=== PATIENT | male | born 1945 | race Caucasian/White ===

== ENCOUNTER 2023-10-27 09:26 | Outpatient (AMB) | payer MEDICARE, OTHER, SELFPAY ==
--- NOTE | 2023-10-27 09:53 | HO.NEPHOV_ITS ---
Vital Signs 10/27/23 09:54 Weight 185 lb 8 oz BP 138/70 Blood Pressure Location Rt brachial Position Sitting Pulse 50 Pulse Source Pulse Oximeter Pulse Oximetry (%) 98 Oxygen Delivery Method Room Air Intake Visit Reasons: Follow up/ CON Unemployment Benefits Claims Taker Required: No Accompanied by: Spouse Allergies No Known Allergies Allergy (Verified 10/27/23 09:56) HPI Comments Details: I had the privilege of seeing Landon in follow-up of his chronic kidney disease and hypertension. He continues to have some leg pain and is following up with vascular surgery. He sees his costumer assistant regularly. His blood pressure has been at goal. He avoids nonsteroidal anti-inflammatories. He has been having memory issues and is on Aricept. He denies nausea, vomiting, diarrhea, shortness of breath, chest pain, dysuria, hematuria or orthostatic symptoms. He feels well. [facility] Medical History (Updated 10/27/23 @ 20:57 by Armaan Kenney MD) Presence of Watchman left atrial appendage closure device Hypertension CKD (chronic kidney disease) stage 3, GFR 30-59 ml/min Surgical History (Updated 10/27/23 @ 09:58 by Charlotte Grewal MA) History of knee replacement Family History (Updated 10/27/23 @ 09:59 by Charlotte Grewal MA) Father Hypertension Mother Hypertension Heart attack Father Stroke Hypertension Sister Hypertension Stroke Social History (Updated 10/27/23 @ 09:58 by Charlotte Grewal MA) Alcohol intake: current Comment: Soacial Patient Tobacco Use Status: Former Tobacco user Review of Systems Const All systems reviewed & are unremarkable except as noted in HPI and below Physical Exam Vital Signs: Last Vital Signs Pulse 50 10/27/23 09:54 BP 138/70 10/27/23 09:54 Pulse Ox 98 10/27/23 09:54 Oxygen Delivery Method Room Air 10/27/23 09:54 Const General: comfortable and no acute distress Orientation/consciousness: patient oriented x3 HEENT Head: Yes normocephalic Mouth: Normal oral and palatal mucosa present Eyes EOM: EOMs intact bilaterally Neck Neck: Yes supple Resp Auscultation: clear to auscultation bilaterally Cardio Jugular venous distension: no JVD Rate: regular rate GI Palpation (GI): Soft to palpation Auscultation: normal bowel sounds General: Yes no CVA tenderness Back/Spine/Pelvis Back: no CVA tenderness Skin General skin exam: no rashes or lesions noted Neuro General: patient oriented x3 and moves all extremities Extrem General: Yes no pedal edema Results Reviewed Nephrology Results: No Data to Display Assessment & Plan Assessment & Plan (1) CKD (chronic kidney disease) stage 3, GFR 30-59 ml/min: Code(s): N18.30 - Chronic kidney disease, stage 3 unspecified Category: Medical Qualifiers: Chronic kidney disease stage 3 subtype: stage 3a (GFR 45-59) Qualified Code(s): N18.31 - Chronic kidney disease, stage 3a (2) Hypertension: Code(s): I10 - Essential (primary) hypertension Category: Medical Qualifiers: Hypertension type: primary hypertension Qualified Code(s): I10 - Essential (primary) hypertension Plan Landon has CKD from vascular disease. His blood pressure is currently at goal. His renal function remain close to baseline. He avoids nonsteroidal anti- inflammatories and maintain good hydration. I shall consider introducing low- dose of JANE inhibitor in the future if possible. His blood pressure is at goal. He should be on a low-sodium diet. He can continue current dose of allopurinol. I did not make any medication changes today. Follow-up lab work ordered. Time spent retrieving all data, patient encounter and documentation 41 minutes. Answered all questions. Orders: Orders Blood Urea Nitrogen Today N18.30 - Chronic kidney disease, stage 3 unspecified Electrolytes Today N18.30 - Chronic kidney disease, stage 3 unspecified Calcium Today N18.30 - Chronic kidney disease, stage 3 unspecified Complete Blood Count Auto Diff Today N18.30 - Chronic kidney disease, stage 3 unspecified Creatinine Today N18.30 - Chronic kidney disease, stage 3 unspecified Coding Level of Care Code Est Pt Level 5 (59304) Diagnoses Stage 3a chronic kidney disease N18.31 Chronic kidney disease stage 3 subtype: stage 3a (GFR 45-59) Primary hypertension I10 Hypertension type: primary hypertension
[2023-10-27 09:54] VITALS: BP 138/70; PULSE 50; O2SAT 98
== END 2023-10-27 10:37 | disposition home or self-care (01) ==
PROVIDERS: PCP Hospitalist; Visit Provider Internal Medicine Nephrology
DX: I12.9 Hypertensive chronic kidney disease with stage 1 through stage 4 chronic kidney disease, or unspecified chronic kidney disease (principal); N18.31 Chronic kidney disease, stage 3a
CPT/HCPCS: 99215

== ENCOUNTER → 2023-10-27 09:26 | Outpatient (BNVA) | payer MEDICARE, OTHER, SELFPAY | PROVIDERS: PCP Hospitalist; Visit Provider Internal Medicine Nephrology | DX: I12.9 Hypertensive chronic kidney disease with stage 1 through stage 4 chronic kidney disease, or unspecified chronic kidney disease (principal); N18.31 Chronic kidney disease, stage 3a | CPT/HCPCS: 99212 ==

== ENCOUNTER 2024-04-26 10:08 | Outpatient (AMB) | payer MEDICARE, OTHER, SELFPAY ==
--- NOTE | 2024-04-26 10:11 | HO.NEPHOV_ITS ---
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 He continues to have cold feet . He has seen vascular surgery before. He sees his book jogger regularly and had a watch man device . He is going to have steroid injection for spinal stenosis ( he has seen Dr Christie ). His blood pressure has been at goal. He avoids nonsteroidal anti-inflammatories. He has been having memory issues and is on Aricept. He denies nausea, vomiting, diarrhea, shortness of breath, chest pain, dysuria, hematuria or orthostatic symptoms. He feels well. [facility] Medical History (Updated 10/27/23 @ 20:57 by Armaan Kenney MD) Presence of Watchman left atrial appendage closure device Hypertension CKD (chronic kidney disease) stage 3, GFR 30-59 ml/min Surgical History History of knee replacement Family History Father Hypertension Mother Hypertension Heart attack Father Stroke Hypertension Sister Hypertension Stroke Social History Alcohol intake: current Comment: Soacial Patient Tobacco Use Status: Former Tobacco user Review of Systems Const All systems reviewed & are unremarkable except as noted in HPI and below Physical Exam Vital Signs: Last Vital Signs Pulse 60 04/26/24 10:17 BP 120/60 04/26/24 10:17 Pulse Ox 96 04/26/24 10:17 Oxygen Delivery Method Room Air 04/26/24 10:17 BMI result Body Mass Index 29.6 Const General: comfortable and no acute distress Orientation/consciousness: patient oriented x3 HEENT Head: Yes normocephalic Mouth: Normal oral and palatal mucosa present Eyes EOM: EOMs intact bilaterally Neck Neck: Yes supple Resp Auscultation: clear to auscultation bilaterally Cardio Jugular venous distension: no JVD Rate: regular rate GI Palpation (GI): Soft to palpation Auscultation: normal bowel sounds General: Yes no CVA tenderness Back/Spine/Pelvis Back: no CVA tenderness Skin General skin exam: no rashes or lesions noted Neuro General: patient oriented x3 and moves all extremities Extrem General: Yes no pedal edema Results Reviewed Nephrology Results: No Data to Display Assessment & Plan Assessment & Plan (1) CKD (chronic kidney disease) stage 3, GFR 30-59 ml/min: Code(s): N18.30 - Chronic kidney disease, stage 3 unspecified Category: Medical Qualifiers: Chronic kidney disease stage 3 subtype: stage 3a (GFR 45-59) Qualified Code(s): N18.31 - Chronic kidney disease, stage 3a (2) Hypertension: Code(s): I10 - Essential (primary) hypertension Category: Medical Qualifiers: Hypertension type: primary hypertension Qualified Code(s): I10 - Essential (primary) hypertension Plan Landon has CKD from vascular disease. His blood pressure is currently at goal. His renal function remain close to baseline. He avoids nonsteroidal anti- inflammatories and maintain good hydration. He should be on a low-sodium diet. He can continue current dose of his medications. He needs MARKO and may have to see vascular surgeon again. I did not make any medication changes today. Follow-up lab work ordered. Answered all questions. Orders: Orders Creatinine 6 Months I10 - Essential (primary) hypertension, N18.31 - Chronic kidney disease, stage 3a Electrolytes 6 Months I10 - Essential (primary) hypertension, N18.31 - Chronic kidney disease, stage 3a Protein Creatinine Ratio, Ur 6 Months I10 - Essential (primary) hypertension, N18.31 - Chronic kidney disease, stage 3a Blood Urea Nitrogen 6 Months I10 - Essential (primary) hypertension, N18.31 - Chronic kidney disease, stage 3a Coding Level of Care Code Est Pt Level 4 (59763) Diagnoses Stage 3a chronic kidney disease N18.31 Chronic kidney disease stage 3 subtype: stage 3a (GFR 45-59) Primary hypertension I10 Hypertension type: primary hypertension
[2024-04-26 10:17] VITALS: BP 120/60; PULSE 60; O2SAT 96; BMI 29.6
--- OUTSIDE RECORDS SUMMARY | 2024-04-26 11:52 | XMS_ITS | Clinical Summary ---
Author Organization [employer] [facility] Address [address] [place] [address] Care Team Providers Care Delivery Nurse Name Role Phone El Ramesh MD Primary Care Provider Surgical History Surgery Date Site/Laterality Comments JOINT REPLACEMENT PROCEDURE:JOINT REPLACEMENT HERNIA REPAIR PROCEDURE:HERNIA REPAIR HEMORRHOID SURGERY PROCEDURE:HEMORRHOID SURGERY Medical History Medical History Date Comments Hypertension DX:Hypertension A-fib (CMS/HCC) DX:A-fib (HCC) Gout DX:Gout Arthritis DX:Arthritis Social History Tobacco Use Types Packs/Day Years Used Date Smoking Tobacco: Unknown Sex and Gender Information Value Date Recorded Sex Assigned at Not on file Legal Sex Male 7:10 AM EST Gender Identity Not on file Sexual Orientation Not on file Obstetrics History Plan of Treatment Health Maintenance Due Date Last Done Comments DTaP,Tdap,and Td Vaccines (1 - Tdap) 12/03/1962 Zoster Vaccines (1 of 2) 12/03/1993 RSV Immunization Patients 60+ Years Old (1 - 1-dose 75+ series) 12/03/2018 Cholesterol Screening (Lipid Panel) 01/24/2022 Depression Screening 01/24/2022 Falls Risk Assessment 01/24/2022 Social Influencers of Health Screening 01/24/2022 Medicare Annual Wellness Visit 10/22/2023 10/21/2022 COVID-19 Vaccine ( - season) 2023 Influenza Vaccine (#1) 2023 3, 11/12/2021, 11/22/2020, Additional history exists Pneumococcal Vaccine: 50+ Years (2 of 2 - PCV) 12/08/2023 12/07/2022 HIB Vaccines Aged Out No longer eligi ble based on patient's age to complete this topic HPV Vaccines Aged Out No longer eligi ble based on patient's age to complete this topic Hepatitis A Vaccines Aged Out No long er eligible based on patient's age to complete this topic Hepatitis B Vaccines Aged Out No long er eligible based on patient's age to complete this topic IPV Vaccines Aged Out No longer eligi ble based on patient's age to complete this topic MMR Vaccines Aged Out No longer eligi ble based on patient's age to complete this topic Meningococcal ACWY Vaccine Aged Out N o longer eligible based on patient's age to complete this topic Meningococcal B Vacine Aged Out No lo nger eligible based on patient's age to complete this topic RSV Immunization Patients Under 20 months Aged Out No longer eligible based on patient's age to complete this topic Varicella Vaccines Aged Out No longer eligible based on patient's age to complete this topic Advance Directives Documents on File Type Date Recorded Patient Cullet Washer Expl anation Health Care Decision (hx) 10/26/2019 AD DIXON DIRECTIVE Health Care Decision (hx) 10/26/2019 AD DIXON DIRECTIVE Health Care Decision (hx) 10/26/2019 AD DIXON DIRECTIVE Health Care Decision (hx) 10/26/2019 AD DIXON DIRECTIVE Health Care Decision (hx) 10/26/2019 AD DIXON DIRECTIVE Health Care Decision (hx) 10/26/2019 AD DIXON DIRECTIVE Health Care Decision (hx) 10/26/2019 AD DIXON DIRECTIVE Health Care Decision (hx) 10/26/2019 AD DIXON DIRECTIVE Health Care Decision (hx) 10/09/2019 AD DIXON DIRECTIVE Health Care Decision (hx) 10/09/2019 AD DIXON DIRECTIVE Health Care Decision (hx) 10/09/2019 AD DIXON DIRECTIVE Health Care Decision (hx) 10/09/2019 AD DIXON DIRECTIVE Health Care Decision (hx) 10/09/2019 AD DIXNO DIRECTIVE Health Care Decision (hx) 10/09/2019 AD DIXON DIRECTIVE Health Care Decision (hx) 10/09/2019 AD DIXON DIRECTIVE Health Care Decision (hx) 10/09/2019 AD DIXON DIRECTIVE Health Care Decision (hx) 10/09/2019 AD DIXON DIRECTIVE Care Teams Delivery Nurse Relationship Specialty Start Date End Date El Ramesh MD [address] [place] [address] [facility] - General 06/01/13
--- OUTSIDE RECORDS SUMMARY | 2024-04-26 11:52 | XMS_ITS | Clinical Summary ---
Author Organization [facility] Address [address] [facility] [address] [place] [address] Phone Care Team Providers Care Food Counselor Name Role Phone El Ramesh MD Primary Care Provider [phone] Allergies No known active allergies Medications allopurinol (ZYLOPRIM) 300 MG tablet Take 1 tablet by mouth 1 (one) time each day Active apixaban (ELIQUIS) 5 MG tablet Take 1 tablet by mouth 2 (two) times a day Active multivitamine, geriatric, (CENTRUM SILVER) tablet Take 1 tablet by mouth 1 (one) time each day Active omeprazole (PriLOSEC) [address] capsule Take 1 capsule by mouth 1 (one) time each day Active ferrous sulfate 325 (65 Fe) MG tablet Take 325 mg by mouth 1 (one) time each day with breakfast Active amLODIPine (NORVASC) 5 MG tablet Take 5 mg by mouth 1 (one) time each day Active omega-3 (FISH OIL) 1000 MG capsule Take by mouth 1 (one) time each day Active cyanocobalamin (VITAMIN B-12) 100 MCG tablet Take 100 mcg by mouth 1 (one) time each day Active Probiotic Product (Align) capsule Take 1 capsule by mouth 1 (one) time each day Active Magnesium 250 MG tablet Take 1 tablet by mouth 1 (one) time in dialysis Active donepezil (Aricept) 10 MG tablet Take 10 mg by mouth every night Active Active Problems Problem Noted Date Diagnosed Date Stage 3a chronic kidney disease 10/26/2022 Heart failure with normal ejection fraction 07/24 Hypertension 01/19/2021 Benign hypertensive renal disease 08/01/2020 Chronic kidney disease 08/01/2020 Essential hypertension 08/01/2020 Proteinuria 08/01/2020 Resolved Problems Problem Noted Date Diagnosed Date Resolved Date Anxiety disorder 08/01/2020 08/01/2020 Atrial fibrillation 08/01/2020 08/02/19 21 Dizziness and giddiness 08/01/202007/22 Gastro-esophageal reflux dis ease without esophagitis 08/01/2020 08/01/2020 Gout 08/01/2020 08/01/2020 Impaired fasting glucose 08/01/202012/2020 Low back strain 08/01/2020 08/01/2020 Obese class II 08/01/2020 08/01/2020 Polyneuropathy 08/01/2020 08/01/2020 Sleep apnea 08/01/2020 08/01/2020 Impingement syndrome of right shoulder region 02/02/20 19 08/01/2020 Abnormal gait 08/10/2018 08/01/2020 Pain of knee region 10/26/2016 08/02/19 21 Pain in left knee 10/26/2016 08/01/2020 Pain in right hip joint 10/26/201607/22 Encounters Date Type Department Care Team Description 04/20/2024 Orders Only [facility] [address] [place] [phone] Armaan Kenney MD from Last 3 Months Immunizations Name Administration Dates Next Due Hep A, Unspecified 06/29/2006,10/27/2005 Influenza Split High Dose Preservative Free IM 0 10/26/2019 Family History Medical History Relation Comments Cancer Father Gout Father Hypertension Father Stroke Father Cancer Mother Dementia Mother Heart disease Mother Hypertension Mother Kidney disease Sibling Relation Status Comments Father Mother Sibling Social History Tobacco Use Types Packs/Day Years Used Date Smoking Tobacco: Former Cigarettes Q uit: 02/21/1993 Smokeless Tobacco: Never Comments:Smoking History Inf o:Every day Alcohol Use Standard Drinks/Week Comments Yes 0 (1 standard drink = 0.6 oz pure alcohol) Alcoholic Drinks/day: 1-2 drinks per day Sex and Gender Information Value Date Recorded Sex Assigned at Not on file Legal Sex Male 5:02 PM EST Gender Identity Not on file Sexual Orientation Not on file Last Filed Vital Signs Vital Sign Reading Time Taken Comments Blood Pressure 140/60 10/26/2022 2:12 PM EDT Pulse 60 10/26/2022 2:12 PM EDT Temperature - - Respiratory Rate - - Oxygen Saturation 97% 01/19/2021 2:21 PM EST Inhaled Oxygen Concentration - - Weight 78 kg (172 lb) 10/26/2022 2:12 PM EDT Height 170.2 cm (5' 7 ) 08/07/2019 12:00 PM EDT Body Mass Index 26.94 08/07/2019 12:00 PM EDT Plan of Treatment Health Maintenance Due Date Last Done Comments Pneumococcal Vaccine: 65+ Ye ars (1 of 2 - PCV) 12/03/1951 Influenza Vaccine (#1) 2023 10/26/2019 Hepatitis B Vaccine Aged Out No longe r eligible based on patient's age to complete this topic Procedures Procedure Name Priority Date/Time Associated Diagnosis Comments CALCIUM Routine 04/20/2024 8:53 AM EST CREATININE, SERUM Routine 04/20/2024 8:5 3 AM EST BUN Routine 04/20/2024 8:53 AM EST ELECTROLYTE PANEL Routine 04/20/2024 8:5 3 AM EST CBC AND DIFFERENTIAL Routine 04/20/2024 8:53 AM EST from Last 3 Months Results * (ABNORMAL) CBC and Differential (04/20/2024 8:53 AM EST) WBC 7.5 3.4 - 10.8 x10E3/uL [facility] RBC 3.94(L) 4.14 - 5.80 x10E6/uL [facility] Hemoglobin 10.0(L) 13.0 - 17.7 g/dL [facility] Hematocrit 33.5(L) 37.5 - 51.0 % [facility] MCV 85 79 - 97 fL [facility] MCH 25.4(L) 26.6 - 33.0 pg [facility] MCHC 29.9(L) 31.5 - 35.7 g/dL [facility] RDW 15.8(H) 11.6 - 15.4 % [facility] Platelets 309 150 - 450 x10E3/uL [facility] Neutrophils Relative 68 Not Estab. % [facility] Lymphocytes Relative 22 Not Estab. % [facility] Monocytes 7 Not Estab. % [facility] Eosinophils Relative 2 Not Estab. % [facility] Basophils Relative 1 Not Estab. % [facility] Neutrophils Absolute 5.1 1.4 - 7.0 x10E3/uL [facility] Lymphocytes Absolute 1.7 0.7 - 3.1 x10E3/uL [facility] Monocytes Absolute 0.5 0.1 - 0.9 x10E3/uL [facility] Eosinophils Absolute 0.1 0.0 - 0.4 x10E3/uL [facility] Basophils Absolute 0.0 0.0 - 0.2 x10E3/uL [facility] Immature Granulocytes 0 Not Estab. % [facility] Immature Grans (Absolute) 0.0 0.0 - 0.1 x10E3/uL [facility] 04/20/2024 8:53 AM EST 04/20/2024 us Armaan Kenney MD LAB BLOOD ORDERABLES Final Resul t [facility] [address] [place] [address] * BUN (04/20/2024 8:53 AM EST) BUN 17 8 - 27 mg/dL [facility] 04/20/2024 8:53 AM EST 04/20/2024 Armaan Kenney MD LAB BLOOD ORDERABLES Final Resul t Performing Organization Address City/[facility]/ZIP Co de Phone Number [facility] [address] [place] [address] * (ABNORMAL) Creatinine, serum (04/20/2024 8:53 AM EST) Creatinine 1.63(H) 0.76 - 1.27 mg/dL [facility] eGFR CKD-EPI CR 2020 42(L) >59 mL/min/1.7 3 [facility] 04/20/2024 8:53 AM EST 04/20/2024 Armaan Kenney MD LAB BLOOD ORDERABLES Final Resul t Performing Organization Address [facility] Co de Phone Number [facility] [address] [place] [address] * Calcium (04/20/2024 8:53 AM EST) Calcium 9.4 8.6 - 10.2 mg/dL [facility] 04/20/2024 8:53 AM EST 04/20/2024 Armaan Kenney MD LAB BLOOD ORDERABLES Final Resul t Performing Organization Address [facility] Co de Phone Number [facility] [address] [place] [address] * Electrolyte panel (04/20/2024 8:53 AM EST) Sodium 140 134 - 144 mmol/L [facility] Potassium 4.7 3.5 - 5.2 mmol/L [facility] Chloride 106 96 - 106 mmol/L [facility] Bicarbonate (CO2) 22 20 - 29 mmol/L [facility] 04/20/2024 8:53 AM EST 04/20/2024 us Armaan Kenney MD LAB BLOOD ORDERABLES Final Resul t [facility] [address] [place] [address] from Last 3 Months Insurance [facility] MEDICARE [facility] MEDICARE Care Teams Food Counselor Relationship Specialty Start Date End Date El Ramesh MD [address] [place] [address] PCP - General 03/03/20
--- OUTSIDE RECORDS SUMMARY | 2024-04-26 11:52 | XMS_ITS | Clinical Summary ---
Author Organization [facility] Address [address] [place] [address] Care Team Providers Care Gray Tender Name Role Phone El Ramesh MD Primary Care Provider [phone] Allergies No known active allergies Medications Medication Sig Dispensed Refills Start Date End Date Status allopurinol (ZYLOPRIM) 300 MG tablet Take 300 mg by mouth daily. 0 Active omeprazole (PRILOSEC) 20 MG capsule Take 20 mg by mouth daily. 0 Active metoprolol succinate (TOPROL-XL) 24 hr tablet 100 mg Take by mouth daily. 0 Active amLODIPine (NORVASC) tablet 10 mg Take 10 mg by mouth daily. 0 Active PARoxetine (PAXIL) 10 MG tablet Take 10 mg by mouth every morning. 0 Active hydrochlorothiazide (HYDRODIURIL) tablet 25 mg Take 25 mg by mouth daily. 0 Active Multiple Vitamins-Minerals (CENTRUM SILVER 50+MEN PO) Take by mouth. 0 Active apixaban (ELIQUIS) 5 MG TABS tablet 1 tablet 0 06/11/2017 Active FEROSUL 325 (65 Fe) MG tablet TAKE 1 T PO QD 0 11/06/2019 Active furosemide (LASIX) 20 MG tablet TK 1 T PO QD 0 10/26/2019 Active gabapentin (NEURONTIN) 100 MG capsule TK 2 CS PO QD 0 10/21/2019 Active isosorbide mononitrate (IMDUR) 30 MG 24 hr tablet TK 1 T PO QD AT SUPPER TIME 0 10/02/2019 Active oxyCODONE (ROXICODONE) 5 MG immediate release tablet Take 1-2 tabs every 4 hours as needed for pain following your right shoulder surgery 50 tablet 0 06/24/2020 Active Active Problems Problem Noted Date Diagnosed Date Postop check 07/18/2020 Impingement syndrome of right shoulder region Abnormality of gait and mobility 08/10/2018 Chronic pain of right knee 12/10/2016 Left knee pain 10/26/2016 Chronic pain of right knee 10/26/2016 Right hip pain 10/26/2016 Social History Tobacco Use Types Packs/Day Years Used Date Smoking Tobacco: Unknown Sex and Gender Information Value Date Recorded Sex Assigned at Not on file Gender Identity Not on file Sexual Orientation Not on file Job Start Date Occupation Industry Not on file Not on file Not on file Last Filed Vital Signs Vital Sign Reading Time Taken Comments Blood Pressure - - Pulse - - Temperature - - Respiratory Rate - - Oxygen Saturation - - Inhaled Oxygen Concentration - - Weight 92.5 kg (204 lb) 09/19/2020 9:05 AM EDT Height 170.2 cm (5' 7 ) 10/26/2016 8:31 AM EDT Body Mass Index 31.95 10/26/2016 8:31 AM EDT Plan of Treatment Health Maintenance Due Date Last Done Comments COVID-19 Vaccine (#1) 06/03/1946 Depression Screening 1955 BMI Counseling 12/03/1961 Preventative Health Evaluation 12/03/1961 DTap / Tdap / Td (1 - Tdap) 12/03/1962 Shingrix-Zoster Vaccine (1 of 2) 12/03/1993 Fall Risk Assessment 12/03/2008 Pneumococcal Vaccine (1 of 1 - PCV) 12/03/2008 RSV Adult > 60+ Yrs or Pregn ant (1 - 1-dose 75+ series) 12/03/2018 Influenza Vaccine (#1) 2023 10/26/2019 Hepatitis B Vaccines Aged Out No long er eligible based on patient's age to complete this topic RSV Ped < 20 months Aged Out No longe r eligible based on patient's age to complete this topic Care Teams Gray Tender Relationship Specialty Start Date End Date El Ramesh MD PCP - General Internal Medicine 03/02/17
--- OUTSIDE RECORDS SUMMARY | 2024-04-26 11:53 | XMS_ITS ---
Author Organization [facility] Address [address] [facility] [address] [place] [address] Care Team Providers Care Customer Relationship Specialist Name Role Phone HAN VILLALPANDO Primary Care Provider Allergies No Known Allergies REASON FOR VISIT 6 month f/u Medications Medication SIG (Take, Route, Frequency, Duration) Notes Start Date End Date Status Cerefolin [facility] .314-2-600 MG 1 tablet Orally Once a day for 90 days 04/21/2023 Not-Taking Gemtesa 75 MG 1 tablet Orally Once a day for 30 days 10/21/2022 Not-Taking Eliquis 5 MG TAKE 1 TABLET TWICE A DAY Orally Twice a day for 90 days Not-Taking Torsemide 10 MG 1 tablet Orally Once a day for 90 days 11/12/2022 Not-Taking Fish Oil 1000 MG 2 capsules Orally On ce a day Not-Taking amLODIPine Besylate 5 MG TAKE 1 TABLET O NCE DAILY for 90 Active Omeprazole 20 MG TAKE 1 CAPSULE DAILY for 90 days Active Kyle Aspirin 325 MG 1 tablet Orally Onc e a day Not-Taking predniSONE 20 MG 1 tablet Orally Once a day for 7 days 02/27/2024 Not-Taking Plavix 75 MG 1 tablet Orally Once a day Not-Taking Align Prebiotic-Probiotic 1 daily Active Allopurinol 300 MG TAKE 1 TABLET ONCE DAILY for 90 days Active FeroSul 325 (65 Fe) MG 1 tablet Orally o nce a day for 90 days Active Memantine HCl ER 7 MG TAKE 1 CAPSULE BY MOUTH ONCE DAILY FOR 2 WEEKS, THEN 2 CAPS ONCE DAILY X2 WEEKS, THEN 3 CAPS ONCE DAILY FOR 2 WEEKS, THEN 4 CAPS DAILY THEREAFTER for 60 Active Donepezil HCl 10 MG TAKE 1 TABLET ONCE DAILY ATBEDTIME for 90 Active Multivitamin Adults - as directed Orally 1 tablet daily 06/11/2017 Active Aspir-Low 81 MG 1 tablet Orally Once a day 10/25/2023 Active Magnesium 250 MG 1 tablet with a meal Orally Once a day Active Tylenol 8 Hour Arthritis Pain 650 MG 2 tablets as needed Orally every 8 hrs Active Social History Tobacco Use: Social History Observation Description Date Details (start date - stop date) Former Smoker NA - NA Tobacco Use/Smoking Question Answer Notes Are you a former smoker How long has it been since you last smoked? > 10 years Alcohol Screen (Audit-C) Question Answer Notes Did you have a drink contain ing alcohol in the past year? Yes How often did you have a dri nk containing alcohol in the past year? 4 or more times a week (4 points) How many drinks did you have on a typical day when you were drinking in the past year? 1 or 2 drinks (0 point) How often did you have 6 or more drinks on one occasion in the past year? Never (0 point) Points 4 Interpretation Positive Tobacco use other than smoking: Question Answer Notes Are you an other tobacco user? s moked for 25 years, 1/2 ppd Vital Signs Temperature 97.0 degrees Fahrenheit 04/24/19 25 Oximetry 98 % 04/23/2024 Heart Rate 69 /min 04/23/2024 Blood pressure systolic 130 mm Hg 04/24/19 25 Blood pressure diastolic 75 mm Hg 025 Weight 189.9 lbs 04/23/2024 BMI 31.6 kg/m2 04/23/2024 Height 5'5 in 04/23/2024 Encounters Encounter Location Date Provider Diagnosis [facility] [address] [place] [address] 04/23/2024 HAN VILLALPANDO Essential (primary) hypertension I10 ; Permanent atrial fibrillation I48.21 ; Complaints of memory disturbance R41.3 ; Impaired fasting glucose R73.01 ; Chronic kidney disease, stage 2 (mild) N18.2 ; Spinal stenosis, site unspecified M48.00 and Gout, unspecified M10.9 Assessments Encounter Date Diagnosis (ICD Code) Assessment Notes Treatment Notes Treatment Clinical Notes Section Notes 04/23/2024 Essential (primary) hypertension (ICD-10 - I10) Landon is 78 years old gentleman hypertension, obstructive sleep apnea, permanent atrial fibrillation and status post watchman procedure, multiple joint osteoarthritis, spinal stenosis, chronic kidney disease stage II, impaired fasting glucose and mild memory loss is here for follow-up. Plan is as follows Hypertension. blood pressure is reasonably controlled on amlodipine 5 mg daily. Low-sodium diet recommended. Permanent atrial fibrillation. Status post watchman procedure and history of GI bleed. Follows up with Dr. London wheatley. Currently is on aspirin 81 mg daily Obstructive sleep apnea. Sleep well on CPAP machine and daytime sleepines. Spinal stenosis and osteoarthritis of the right hip joint. He will follow with Dr. Christie for injection in the cervical spine and will also make appointment with for injection in the right hip joint. Meanwhile he is taking Tylenol arthritis 2 tablets twice a day. Chronic kidney disease stage II. He is stable at this point and he does not appear to be volume overload. Advised appropriate hydration. Acid reflux. Continue omeprazole 20 mg daily Mild memory loss. Stable on current regimen of Aricept 10 mg daily and memantine 1 mg extended release daily. May consider increasing the dose in future. Screening blood work ordered 04/23/2024 Permanent atrial fibrillation (ICD-10 - I48.21) Landon is 78 years old gentleman hypertension, obstructive sleep apnea, permanent atrial fibrillation and status post watchman procedure, multiple joint osteoarthritis, spinal stenosis, chronic kidney disease stage II, impaired fasting glucose and mild memory loss is here for follow-up. Plan is as follows Hypertension. blood pressure is reasonably controlled on amlodipine 5 mg daily. Low-sodium diet recommended. Permanent atrial fibrillation. Status post watchman procedure and history of GI bleed. Follows up with Dr. London wheatley. Currently is on aspirin 81 mg daily Obstructive sleep apnea. Sleep well on CPAP machine and daytime sleepines. Spinal stenosis and osteoarthritis of the right hip joint. He will follow with Dr. Christie for injection in the cervical spine and will also make appointment with for injection in the right hip joint. Meanwhile he is taking Tylenol arthritis 2 tablets twice a day. Chronic kidney disease stage II. He is stable at this point and he does not appear to be volume overload. Advised appropriate hydration. Acid reflux. Continue omeprazole 20 mg daily Mild memory loss. Stable on current regimen of Aricept 10 mg daily and memantine 1 mg extended release daily. May consider increasing the dose in future. Screening blood work ordered 04/23/2024 Complaints of memory disturbance (ICD-10 - R41.3) Landon is 78 years old gentleman hypertension, obstructive sleep apnea, permanent atrial fibrillation and status post watchman procedure, multiple joint osteoarthritis, spinal stenosis, chronic kidney disease stage II, impaired fasting glucose and mild memory loss is here for follow-up. Plan is as follows Hypertension. blood pressure is reasonably controlled on amlodipine 5 mg daily. Low-sodium diet recommended. Permanent atrial fibrillation. Status post watchman procedure and history of GI bleed. Follows up with Dr. London wheatley. Currently is on aspirin 81 mg daily Obstructive sleep apnea. Sleep well on CPAP machine and daytime sleepines. Spinal stenosis and osteoarthritis of the right hip joint. He will follow with Dr. Christie for injection in the cervical spine and will also make appointment with for injection in the right hip joint. Meanwhile he is taking Tylenol arthritis 2 tablets twice a day. Chronic kidney disease stage II. He is stable at this point and he does not appear to be volume overload. Advised appropriate hydration. Acid reflux. Continue omeprazole 20 mg daily Mild memory loss. Stable on current regimen of Aricept 10 mg daily and memantine 1 mg extended release daily. May consider increasing the dose in future. Screening blood work ordered 04/23/2024 Impaired fasting glucose (ICD-10 - R73.01) Landon is 78 years old gentleman hypertension, obstructive sleep apnea, permanent atrial fibrillation and status post watchman procedure, multiple joint osteoarthritis, spinal stenosis, chronic kidney disease stage II, impaired fasting glucose and mild memory loss is here for follow-up. Plan is as follows Hypertension. blood pressure is reasonably controlled on amlodipine 5 mg daily. Low-sodium diet recommended. Permanent atrial fibrillation. Status post watchman procedure and history of GI bleed. Follows up with Dr. London wheatley. Currently is on aspirin 81 mg daily Obstructive sleep apnea. Sleep well on CPAP machine and daytime sleepines. Spinal stenosis and osteoarthritis of the right hip joint. He will follow with Dr. Christie for injection in the cervical spine and will also make appointment with for injection in the right hip joint. Meanwhile he is taking Tylenol arthritis 2 tablets twice a day. Chronic kidney disease stage II. He is stable at this point and he does not appear to be volume overload. Advised appropriate hydration. Acid reflux. Continue omeprazole 20 mg daily Mild memory loss. Stable on current regimen of Aricept 10 mg daily and memantine 1 mg extended release daily. May consider increasing the dose in future. Screening blood work ordered 04/23/2024 Chronic kidney disease, stage 2 (mild) (ICD-10 - N18.2) Landon is 78 years old gentleman hypertension, obstructive sleep apnea, permanent atrial fibrillation and status post watchman procedure, multiple joint osteoarthritis, spinal stenosis, chronic kidney disease stage II, impaired fasting glucose and mild memory loss is here for follow-up. Plan is as follows Hypertension. blood pressure is reasonably controlled on amlodipine 5 mg daily. Low-sodium diet recommended. Permanent atrial fibrillation. Status post watchman procedure and history of GI bleed. Follows up with Dr. London wheatley. Currently is on aspirin 81 mg daily Obstructive sleep apnea. Sleep well on CPAP machine and daytime sleepines. Spinal stenosis and osteoarthritis of the right hip joint. He will follow with Dr. Christie for injection in the cervical spine and will also make appointment with for injection in the right hip joint. Meanwhile he is taking Tylenol arthritis 2 tablets twice a day. Chronic kidney disease stage II. He is stable at this point and he does not appear to be volume overload. Advised appropriate hydration. Acid reflux. Continue omeprazole 20 mg daily Mild memory loss. Stable on current regimen of Aricept 10 mg daily and memantine 1 mg extended release daily. May consider increasing the dose in future. Screening blood work ordered 04/23/2024 Spinal stenosis, site unspecified (ICD-10 - M48.00) Landon is 78 years old gentleman hypertension, obstructive sleep apnea, permanent atrial fibrillation and status post watchman procedure, multiple joint osteoarthritis, spinal stenosis, chronic kidney disease stage II, impaired fasting glucose and mild memory loss is here for follow-up. Plan is as follows Hypertension. blood pressure is reasonably controlled on amlodipine 5 mg daily. Low-sodium diet recommended. Permanent atrial fibrillation. Status post watchman procedure and history of GI bleed. Follows up with Dr. London wheatley. Currently is on aspirin 81 mg daily Obstructive sleep apnea. Sleep well on CPAP machine and daytime sleepines. Spinal stenosis and osteoarthritis of the right hip joint. He will follow with Dr. Christie for injection in the cervical spine and will also make appointment with for injection in the right hip joint. Meanwhile he is taking Tylenol arthritis 2 tablets twice a day. Chronic kidney disease stage II. He is stable at this point and he does not appear to be volume overload. Advised appropriate hydration. Acid reflux. Continue omeprazole 20 mg daily Mild memory loss. Stable on current regimen of Aricept 10 mg daily and memantine 1 mg extended release daily. May consider increasing the dose in future. Screening blood work ordered 04/23/2024 Gout, unspecified (ICD-10 - M10.9) Landon is 78 years old gentleman hypertension, obstructive sleep apnea, permanent atrial fibrillation and status post watchman procedure, multiple joint osteoarthritis, spinal stenosis, chronic kidney disease stage II, impaired fasting glucose and mild memory loss is here for follow-up. Plan is as follows Hypertension. blood pressure is reasonably controlled on amlodipine 5 mg daily. Low-sodium diet recommended. Permanent atrial fibrillation. Status post watchman procedure and history of GI bleed. Follows up with Dr. London andujar and amanda. Currently is on aspirin 81 mg daily Obstructive sleep apnea. Sleep well on CPAP machine and daytime sleepines. Spinal stenosis and osteoarthritis of the right hip joint. He will follow with Dr. Christie for injection in the cervical spine and will also make appointment with for injection in the right hip joint. Meanwhile he is taking Tylenol arthritis 2 tablets twice a day. Chronic kidney disease stage II. He is stable at this point and he does not appear to be volume overload. Advised appropriate hydration. Acid reflux. Continue omeprazole 20 mg daily Mild memory loss. Stable on current regimen of Aricept 10 mg daily and memantine 1 mg extended release daily. May consider increasing the dose in future. Screening blood work ordered Plan Of Treatment Future Test Test Name Order Date Uric Acid-[id number] 04/23/2024 Hemoglobin [id number] 04/23/2024 Albumin/Creatinine Ratio,Urine-[id number] Lipid Panel-[id number] 04/23/2024 Comp. Metabolic Panel [id number] 2024 Next Appt Details Follow Up: 6 Months- Naomy JOINER son: Provider Name:HAN VILLALPANDO , 10/30/2024 10:00:00 AM, [address] [place] [address], [id number], Progress Notes * Evens THORNTONB:1945 (78 yo M)Acc No.[id number]:04/23/2024 Progress Notes Patient:?Landon THORNTON Provider:?HAN VILLALPANDO MD :1945???Age:78 Y???Sex:Male Levon e:04/23/2024 Address:[address] [place], [place] [address]Jie [id number] Subjective: * Chief Complaints: * ???6 month f/u * HPI: ???Internal Medicine:?Landon is a 78-year-old gentleman with hypertension, hyperlipidemia, atrial fibrillation, peripheral neuropathy, obstructive sleep apnea and upper GI bleed, lumbar stenosis and right hip joint pain he is here for follow-up.? He saw Dr. Christie for spinal stenosis and patient is going to have an intra-facet injection in the neck.? He also complains of pain in the right hip joint and is seeing Dr. Rodriguez in the past and will make appointment. He tries to be active as much as possible.? His vision is stable.? Weight is stable.? No or GI issues.? He does not appear to be anxious or depressed. * ROS:?General/Constitutional:?Overall health?Good.?Change in appetite?denies.?Chills?denies.?Fever?denies.?Night sweats?denies.?Sleep disturbance?denies.?Weight gain?admits, 8.5?pounds.?Weight loss?denies.?Neurologic:?Difficulty speaking?denies.?Dizziness?denies.?Gait abnormality?denies.?Headache?denies.?Loss of strength?denies.?Memory loss?denies.?Seizures?denies.?Tingling/Numbness?denies .?Ophthalmologic:?Blurred vision?denies.?Discharge?denies.?Dry eye?denies.?Red eye?denies.?ENT:?Change in Voice?Denies.?Cold Symptoms?Denies.?Cough?Denies.?Dizziness?Denies.?Nasal Congestion?Denies.?Otalgia?Denies.?postnasal drip?Denies.?Blocked ear?denies.?Nosebleed?denies.?Snoring?denies.?Cardiovascular:?Diaphoresis?Denies.?Pedal Edema?Denies.?PND (Paroxsymal nocturnal dyspnea)?Denies.?Chest pain?denies.?Difficulty laying flat?denies.?Dyspnea on exertion?denies.?Heart murmur?denies.?Orthopnea?denies.?Respiratory:?Snoring?denies.?Asthma?denies.?Cough?denies.?Shortness of breath with exertion?denies.?Sputum production?denies.?Wheezing?denies.?Gastrointestinal:?Change in bowel habits?denies.?Constipation?denies.?Decreased appetite?denies.?Diarrhea?denies.?Heartburn?denies.?Nausea?denies.?Vomiting?prashant es.?Musculoskeletal:?tingling/numbness?Denies.?myalgias?Denies.?Joint Swelling?Denies.?extremeties?normal.?Arthritis?,admits.?Back problems?,admits.?Carpal tunnel?denies.?Joint stiffness?denies.?Muscle aches?denies.?Endocrine:?Bowel Changes?Denies.?Breast Discharge?Denies.?poor libido?Denies.?Cold intolerance?denies.?Excessive sweating?denies.?Excessive thirst?denies.?Frequent urination?denies.?Thyroid problems?denies.?Skin:?Bruising?Denies.?Eczema?denies.?Hair changes?denies.?Rash?denies.?Skin lesion(s)?denies.?Psychiatric:?Anxiety?denies.?Depressed mood?denies.?Difficulty sleeping?denies.?Nervous breakdown?denies.?Substance abuse?denies.?Urology:?abnormal menstrual bleeding?denies.?blood in urine?denies.?burning on urination?denies.?difficulty urinating?denies.?discharge?denies.?dysuria?denies.? * Medical History:? * Surgical History:?cataract r emoval hemorrhoidectomy inguinal hernia repair knee Arthoplasty * Hospitalization/Major Diagno stic Procedure:? * Family History:?Father: dece ased.?Mother: .? * Social History:?Tobacco Use:?Tobacco Use/Smoking?Are you a?former smoker ?How long has it been since you last smoked??> 10 years ?Tobacco use other than smoking?Are you an other tobacco user??smoked for 25 years, 1/2 ppd ???Drugs/Alcohol:?Drugs?Have you used drugs other than those for medical reasons in the past 12 months??No ?Alcohol Screen (Audit-C)?Did you have a drink containing alcohol in the past year??Yes ?How often did you have a drink containing alcohol in the past year??4 or more times a week (4 points) ?How many drinks did you have on a typical day when you were drinking in the past year??1 or 2 drinks (0 point) ?How often did you have 6 or more drinks on one occasion in the past year??Never (0 point) ?Points?4 ?Interpretation?Positive ???Miscellaneous:?Exercise: Patient exercises. ?Living with: spouse. ?Marital status: . ?Occupation: Retired. * Medications:?TakingAspir-Low 81 MG Tablet Delayed Release 1 tablet Orally Once a day Tylenol 8 Hour Arthritis Pain 650 MG Tablet Extended Release 2 tablets as needed Orally every 8 hrs Magnesium 250 MG Tablet 1 tablet with a meal Orally Once a day Multivitamin Adults - Tablet as directed Orally 1 tablet daily Align Prebiotic-Probiotic , Notes to Pharmacist: 1 dailyFeroSul 325 (65 Fe) MG Tablet 1 tablet Orally once a day Allopurinol 300 MG Tablet TAKE 1 TABLET ONCE DAILY Donepezil HCl 10 MG Tablet TAKE 1 TABLET ONCE DAILY ATBEDTIME Memantine HCl ER 7 MG Capsule Extended Release 24 Hour TAKE 1 CAPSULE BY MOUTH ONCE DAILY FOR 2 WEEKS, THEN 2 CAPS ONCE DAILY X2 WEEKS, THEN 3 CAPS ONCE DAILY FOR 2 WEEKS, THEN 4 CAPS DAILY THEREAFTER Omeprazole 20 MG Capsule Delayed Release TAKE 1 CAPSULE DAILY amLODIPine Besylate 5 MG Tablet TAKE 1 TABLET ONCE DAILY Taking Aspir-Low 81 MG Tablet Delayed Release 1 tablet Orally Once a day Taking Tylenol 8 Hour Arthritis Pain 650 MG Tablet Extended Release 2 tablets as needed Orally every 8 hrs Taking Magnesium 250 MG Tablet 1 tablet with a meal Orally Once a day Taking Multivitamin Adults - Tablet as directed Orally 1 tablet daily Taking Align Prebiotic-Probiotic , Notes to Pharmacist: 1 dailyTaking FeroSul 325 (65 Fe) MG Tablet 1 tablet Orally once a day Taking Allopurinol 300 MG Tablet TAKE 1 TABLET ONCE DAILY Taking Donepezil HCl 10 MG Tablet TAKE 1 TABLET ONCE DAILY ATBEDTIME Taking Memantine HCl ER 7 MG Capsule Extended Release 24 Hour TAKE 1 CAPSULE BY MOUTH ONCE DAILY FOR 2 WEEKS, THEN 2 CAPS ONCE DAILY X2 WEEKS, THEN 3 CAPS ONCE DAILY FOR 2 WEEKS, THEN 4 CAPS DAILY THEREAFTER Taking Omeprazole 20 MG Capsule Delayed Release TAKE 1 CAPSULE DAILY Taking amLODIPine Besylate 5 MG Tablet TAKE 1 TABLET ONCE DAILY Not-TakingpredniSONE 20 MG Tablet 1 tablet Orally Once a day Kyle Aspirin 325 MG Tablet 1 tablet Orally Once a day Plavix 75 MG Tablet 1 tablet Orally Once a day Fish Oil 1000 MG Capsule 2 capsules Orally Once a day Cerefolin NAC 6-90.314-2-600 MG Tablet 1 tablet Orally Once a day Eliquis 5 MG Tablet TAKE 1 TABLET TWICE A DAY Orally Twice a day Gemtesa 75 MG Tablet 1 tablet Orally Once a day Torsemide 10 MG Tablet 1 tablet Orally Once a day Medication List reviewed and reconciled with the patientNot-Taking predniSONE 20 MG Tablet 1 tablet Orally Once a day Not-Taking Kyle Aspirin 325 MG Tablet 1 tablet Orally Once a day Not-Taking Plavix 75 MG Tablet 1 tablet Orally Once a day Not-Taking Fish Oil 1000 MG Capsule 2 capsules Orally Once a day Not-Taking Cerefolin NAC 6-90.314-2-600 MG Tablet 1 tablet Orally Once a day Not-Taking Eliquis 5 MG Tablet TAKE 1 TABLET TWICE A DAY Orally Twice a day Not-Taking Gemtesa 75 MG Tablet 1 tablet Orally Once a day Not-Taking Torsemide 10 MG Tablet 1 tablet Orally Once a day Medication List reviewed and reconciled with the patient * Allergies:?N.K.D.A.no[Allerg ies Verified] Objective: * Vitals:?Temp: 97.0 F, Oxygen sat %: 98 %, HR: 69 /min, BP: 130/75 mm Hg, Wt: 189.9 lbs, BMI: 31.6 Index, Ht: 5'5 . * ???Past Orders: ???Lab:Hgb A1c with eAG Daysi ribera-[id number] (Order Date - 10/19/2023) (Collection Date & Time - 10/19/2023 11:22 AM) ? Value Reference Range ?Hemoglobin A1c 5.6 4.8-5 .6 - % ?Estim. Avg Glu (eAG) 114 - mg/dL ???Lab:Albumin/Creatinine Ra meghna,Urine-[id number] (Order Date - 10/19/2023) (Collection Date & Time - 10/19/2023 11:22 AM) ? Value Reference Range ?Creatinine, Urine 112.7 No t Estab. - mg/dL ?Albumin, Urine 1417.8 Not E stab. - ug/mL ?Alb/Creat Ratio 1258 H 0-29 - mg/g creat ???Lab:LP+Non-HDL Cholestero [id number] (Order Date - 10/19/2023) (Collection Date & Time - 10/19/2023 11:22 AM) ? Value Reference Range ?Cholesterol, Total 159 1 00-199 - mg/dL ?Triglycerides 121 0-149 - mg/dL ?HDL Cholesterol 51 >39 - mg/dL ?VLDL Cholesterol Herminio 22 5-40 - mg/dL ?LDL Chol Calc ([facility]) 86 0-99 - mg/dL ?Non-HDL Cholesterol 108 0-129 - mg/dL ???Lab:Comp. Metabolic Panel ()-[id number] (Order Date - 10/19/2023) (Collection Date & Time - 10/19/2023 11:22 AM) ? Value Reference Range ?Glucose 86 70-99 - mg/d L ?BUN 18 8-27 - mg/dL ?Creatinine 1.38 H 0.76-1.27 - mg/dL ?BUN/Creatinine Ratio 13 10-24 - ?Sodium 140 134-144 - mmo l/L ?Potassium 4.4 3.5-5.2 - mmol/L ?Chloride 106 96-106 - mm ol/L ?Anion Gap 14.0 10.0-18.0 - mmol/L ?Carbon Dioxide, Total 20 20-29 - mmol/L ?Calcium 9.3 8.6-10.2 - m g/dL ?Protein, Total 6.6 6.0-8 .5 - g/dL ?Albumin 3.9 3.8-4.8 - g/ dL ?Globulin, Total 2.7 1.5- 4.5 - g/dL ?Bilirubin, Total 0.3 0.0 -1.2 - mg/dL ?Alkaline Phosphatase 151 H 44-121 - IU/L ?AST (SGOT) 14 0-40 - IU /L ?ALT (SGPT) 13 0-44 - IU /L ?eGFR 52 L >59 - mL/min/1. 73 * Examination: ???General Examination: ?Psychiatry?Normal.?GENERAL APPEARANCE:?Well developed, well nourished, in no acute distress.?MUSCULOSKELETAL:?decreased range of motion of the right hip joint in all planes.?HEAD:?Normocephalic, atraumatic.?EYES:?Pupils equal, round, reactive to light and accommodation, sclera non-icteric.?EARS:?Normal.?ORAL CAVITY:?Normal.?THROAT:?Clear.?OROPHARYNX?Normal.?SINUSES?Normal.?NECK/THYROID:?Neck supple, full range of motion, no cervical lymphadenopathy.?SKIN:?Warm and dry, no suspicious lesions.?HEART:?irregularly irregular.?LUNGS:?Normal.?BREASTS:?__.?ABDOMEN:?Soft, nontender, nondistended, bowel sounds present, normal.?EXTREMITIES:?Normal.?PERIPHERAL PULSES:?Normal.?NEUROLOGIC:?Nonfocal,? 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 .? Assessment: * Assessment: 1.?Essential (primary) hyper tension - I10 (Primary)???2.?Permanent atrial fibrillation - I48.21???3.?Complaints of memory disturbance - R41.3???4.?Impaired fasting glucose - R73.01???5.?Chronic kidney disease, stage 2 (mild) - N18.2???6.?Spinal stenosis, site unspecified - M48.00???7.?Gout, unspecified - M10.9??? Landon is 78 years old gentlem an hypertension, obstructive sleep apnea, permanent atrial fibrillation and status post watchman procedure, multiple joint osteoarthritis, spinal stenosis, chronic kidney disease stage II, impaired fasting glucose and mild memory loss is here for follow-up.? Plan is as follows Hypertension. blood pressure is reasonably controlled on amlodipine 5 mg daily.? Low-sodium diet recommended. Permanent atrial fibrillation.? Status post watchman procedure and history of GI bleed.? Follows up with Dr. London andujar and stable.? Currently is on aspirin 81 mg daily Obstructive sleep apnea.? Sleep well on CPAP machine and daytime sleepines. Spinal stenosis and osteoarthritis of the right hip joint.? He will follow with Dr. Christie for injection in the cervical spine and will also make appointment with for injection in the right hip joint.? Meanwhile he is taking Tylenol arthritis 2 tablets twice a day. Chronic kidney disease stage II.? He is stable at this point and he does not appear to be volume overload.? Advised appropriate hydration. Acid reflux.? Continue omeprazole 20 mg daily Mild memory loss.? Stable on current regimen of Aricept 10 mg daily and memantine 1 mg extended release daily.? May consider increasing the dose in future. Screening blood work ordered Plan: * Treatment: 2.?Impaired fasting glucose?LAB: Hemoglobin [id number] (Ordered for 04/23/2024) 3.?Gout, unspecified?LAB: Uric [id number] (Ordered for 04/23/2024) * Procedure Codes:? * Follow Up:?6 Months- AW * * Sign off status: Completed true * Provider:?HAN VILLALPANDO MD Date:?04/23 Generated for Velaqsuez rivera/Darline/Nakiaitting on:?04/26/2024 11:52 AM EST History and Physical Notes * HPI (History of Present Illness) Category Sub-Category Detail Notes Category Not es Internal Medicine Landon is a 78-year-old gentleman with hypertension, hyperlipidemia, atrial fibrillation, peripheral neuropathy, obstructive sleep apnea and upper GI bleed, lumbar stenosis and right hip joint pain he is here for follow-up. He saw Dr. Christie for spinal stenosis and patient is going to have an intra-facet injection in the neck. He also complains of pain in the right hip joint and is seeing Dr. Rodriguez in the past and will make appointment. He tries to be active as much as possible. His vision is stable. Weight is stable. No or GI issues. He does not appear to be anxious or depressed. Examination Category Sub-Category Detail Notes Category Not es General Examination GENERAL APPEARANCE: Well dev eloped, well nourished, in no acute distress HEAD: Normocephalic, atrau matic EYES: Pupils equal, round, reactive to light and accommodation, sclera non-icteric EARS: Normal THROAT: Clear NECK/THYROID: Neck supple, full ra nge of motion, no cervical lymphadenopathy HEART: irregularly irregula r LUNGS: Normal ABDOMEN: Soft, nontender, non distended, bowel sounds present, normal NEUROLOGIC: Nonfocal, appropriat e motor strength normal upper and lower extremities, sensory exam intact SKIN: Warm and dry, no brett picious lesions EXTREMITIES: Normal PERIPHERAL PULSES: Normal BREASTS: __ MUSCULOSKELETAL: decreased range of m otion of the right hip joint in all planes MALE GENITOURINARY: __ FEMALE GENITOURINARY: __ ORAL CAVITY: Normal PODIATRIC: Normal Psychiatry Normal OROPHARYNX Normal 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
--- OUTSIDE RECORDS SUMMARY | 2024-04-26 11:53 | XMS_ITS | Patient Health Record ---
Author Organization [email or web address] Address [address] [facility] [place] [address] Care Team Providers Care Compliance And Control Analyst Name Role Phone HAN VILLALPANDO Primary Care Provider [place], [place] Unavailable [phone] Allergies No Known Allergies Results Component Value Reference Range Notes Comp. Metabolic Panel ([id number] Reviewed date:10/20/2023 06:10:22 PM Interpretation: Performing Lab:[facility] [place], [address], [place], Phone - [phone], Director - Alex Notes/Report: Glucose 86 70-99 mg/dL BUN 18 8-27 mg/dL Creatinine 1.38 0.76-1.27 mg/dL eGFR 52 >59 mL/min/1.73 BUN/Creatinine Ratio 13 10-24 Sodium 140 134-144 mmol/L Potassium 4.4 3.5-5.2 mmol/L Chloride 106 96-106 mmol/L Anion Gap 14.0 10.0-18.0 mmol/L Carbon Dioxide, Total 20 20-29 mmol/L Calcium 9.3 8.6-10.2 mg/dL Protein, Total 6.6 6.0-8.5 g/dL Albumin 3.9 3.8-4.8 g/dL Globulin, Total 2.7 1.5-4.5 g/dL Bilirubin, Total 0.3 0.0-1.2 mg/dL Alkaline Phosphatase 151 44-121 IU/L AST (SGOT) 14 0-40 IU/L ALT (SGPT) 13 0-44 IU/L LP+Non-HDL Cholesterol-[id number] 5 Reviewed date:10/20/2023 06:12:11 PM Interpretation: Performing Lab:[facility] [place], [address] [place] [address], Phone - [phone], Director - Alex Notes/Report: Cholesterol, Total 159 100-199 mg/dL Triglycerides 121 0-149 mg/dL HDL Cholesterol 51 >39 mg/dL VLDL Cholesterol Herminio 22 5-40 mg/dL LDL Chol Calc (NIH) 86 0-99 mg/dL Non-HDL Cholesterol 108 0-129 mg/dL Albumin/Creatinine Ratio,Uri ne-[id number] Reviewed date:10/25/2023 07:25:36 AM Interpretation: Performing Lab:[facility] [place], [address] [facility], [place], Phone - [phone], Director - Alex Notes/Report: Creatinine, Urine 112.7 Not Estab. mg/dL Albumin, Urine 1417.8 Not Estab. ug/mL Results confirmed on dilution. Alb/Creat Ratio 1258 0-29 mg/g creat Normal: 0 - 29 Moderately increased: 30 - 300 Severely increased: >300 Hgb A1c with eAG Estimation- [id number] Reviewed date:10/20/2023 06:23:15 PM Interpretation: Performing Lab:[facility] [place], [facility], [place], Phone - [phone], Director - Alex Notes/Report: Hemoglobin A1c 5.6 4.8-5.6 % . Prediabetes: 5.7 - 6.4 Diabetes: >6.4 Glycemic control for adults with diabetes: <7.0 Estim. Avg Glu (eAG) 114 NOROVIRUS ANTIGEN DETECTION Reviewed date:08/29/2023 11:38:19 AM Interpretation: Performing Lab: Notes/Report: Note Original Ordering Provider: SANDRA FELICIANO MD [employer], [place] [address] Machine Erector - Cuca Madden MD NOROVIRUS ANTIGEN, STOOL Negative Negative NOROVIRUS GENOGROUP 2 Negative Negative This test was developed and its performance characteristics determined by [facility]. It has not been cleared or approved by the Food and Drug Administration. The FDA has determined that such clearance or approval is not necessary. Performed at: [address] [id number] Systems Security Consultant: Thai Earl MD, Phone: [phone] Note Original Ordering Provider: SANDRA FELICIANO MD [employer], a member of [address] [address] Machine Erector - Cuca Madden MD GASTROINTESTINAL PANEL PCR Reviewed date:08/18/2023 12:18:23 PM Interpretation: Performing Lab: Notes/Report: Note Original Ordering Provider: SANDRA FELICIANO MD [employer], a member of [address] [address] Machine Erector - Cuca Madden MD GASTROINTESTINAL PANEL PCR PCR testing is much more sensitive than traditional GASTROINTESTINAL PANEL PCR techniques and allows for the detection of low numbers of GASTROINTESTINAL PANEL PCR stool pathogens. The clinical correlation of PCR results GASTROINTESTINAL PANEL PCR with the need for treatment and clinical outcomes has not GASTROINTESTINAL PANEL PCR been established. Therefore the results of PCR testing for GASTROINTESTINAL PANEL PCR stool pathogens must be taken into clinical context when GASTROINTESTINAL PANEL PCR making treatment decisions. This is a diagnostic test only, GASTROINTESTINAL PANEL PCR repeat testing for cure is not advised. You may consider GASTROINTESTINAL PANEL PCR infectious disease consult for additional guidance. GASTROINTESTINAL PANEL PCR REFERENCE RANGE: NEGATIVE, Target Nucleic Acid Not Detected GASTROINTESTINAL PANEL PCR Testing Performed by MULTIPLEXED PCR GASTROINTESTINAL PANEL PCR CAMPYLOBACTER PCR GASTROINTESTINAL PANEL PCR NOT DETECTED GASTROINTESTINAL PANEL PCR PLES. SHIGELLOIDES PCR GASTROINTESTINAL PANEL PCR NOT DETECTED GASTROINTESTINAL PANEL PCR SALMONELLA PCR GASTROINTESTINAL PANEL PCR NOT DETECTED GASTROINTESTINAL PANEL PCR VIBRIO PCR GASTROINTESTINAL PANEL PCR NOT DETECTED GASTROINTESTINAL PANEL PCR VIBRIO CHOLERAE PCR GASTROINTESTINAL PANEL PCR NOT DETECTED GASTROINTESTINAL PANEL PCR YERS.ENTEROCOLITICA PCR GASTROINTESTINAL PANEL PCR NOT DETECTED GASTROINTESTINAL PANEL PCR ENTERAGGREGATIVE YESENIA GASTROINTESTINAL PANEL PCR NOT DETECTED GASTROINTESTINAL PANEL PCR ENTERPATHOGENIC YESENIA GASTROINTESTINAL PANEL PCR NOT DETECTED GASTROINTESTINAL PANEL PCR ENTEROTOXIGENIC YESENIA GASTROINTESTINAL PANEL PCR NOT DETECTED GASTROINTESTINAL PANEL PCR SHIGA-LIKE TOXIN YESENIA PCR GASTROINTESTINAL PANEL PCR NOT DETECTED GASTROINTESTINAL PANEL PCR SHIGELLA/YESENIA (EIEC) GASTROINTESTINAL PANEL PCR NOT DETECTED GASTROINTESTINAL PANEL PCR CRYPTOSPORIDIUM PCR GASTROINTESTINAL PANEL PCR NOT DETECTED GASTROINTESTINAL PANEL PCR CYCLO. CAYETANENSIS PCR GASTROINTESTINAL PANEL PCR NOT DETECTED GASTROINTESTINAL PANEL PCR ENT.HISTOLYTICA PCR GASTROINTESTINAL PANEL PCR NOT DETECTED GASTROINTESTINAL PANEL PCR GIARDIA LAMBLIA PCR GASTROINTESTINAL PANEL PCR NOT DETECTED GASTROINTESTINAL PANEL PCR ADENOVIRUS F 40/41 PCR GASTROINTESTINAL PANEL PCR NOT DETECTED GASTROINTESTINAL PANEL PCR ASTROVIRUS PCR GASTROINTESTINAL PANEL PCR NOT DETECTED GASTROINTESTINAL PANEL PCR NOROVIRUS GI/GII PCR GASTROINTESTINAL PANEL PCR DETECTED GASTROINTESTINAL PANEL PCR ROTAVIRUS PCR GASTROINTESTINAL PANEL PCR NOT DETECTED GASTROINTESTINAL PANEL PCR SAPOVIRUS PCR GASTROINTESTINAL PANEL PCR NOT DETECTED GASTROINTESTINAL PANEL PCR Norovirus GI/GII Note Original Ordering Provider: SANDRA FELICIANO MD [employer], a member of [address] [address] Machine Erector - Cuca Madden MD CLOST. DIFFICILE TOXIN PANEL Reviewed date:08/18/2023 12:18:28 PM Interpretation: Performing Lab: Notes/Report: Original Ordering Provider: SANDRA FELICIANO MD [employer], a member of [address] [address] Machine Erector - Cuca Madden MD CLOST. DIFFICILE TOXIN PANEL NEGATIVE FOR TOXIN PRODUCING CLOSTRIDIOIDES DIFFICILE, CLOST. DIFFICILE TOXIN PANEL NO ADDITIONAL TESTING IS NECESSARY. CLOST. DIFFICILE TOXIN PANEL TOXIN A/B EIA CLOST. DIFFICILE TOXIN PANEL NEGATIVE TSH Reviewed date:08/17/2023 09:03:48 AM Interpretation: Performing Lab: Notes/Report: TSH 2.47 0.40-4.00 uIU/ml TTG IGA PANEL Reviewed date:08/19/2023 02:47:33 PM Interpretation: Performing Lab: Notes/Report: [employer], [place] [address] Machine Erector - Cuca Madden MD TTG IGA NEGATIVE NEGATIVE TTG IGA QUANT 1 <4 U/mL LIVER PANEL Reviewed date:08/17/2023 09:04:03 AM Interpretation: Performing Lab: Notes/Report: TOTAL PROTEIN 7.1 6.0-8.0 G/dL ALBUMIN 3.5 3.2-5.0 G/dL BILI,TOTAL 0.5 0.0-1.4 mg/dL BILI,DIRECT 0.1 0.0-0.3 mg/dL BILI,INDIRECT 0.4 0.0-1.1 mg/dL SGOT 18 10-42 U/L SGPT 23 10-60 U/L ALK PHOS 148 42-121 U/L IGA Reviewed date:08/17/2023 09:03:57 AM Interpretation: Performing Lab: Notes/Report: IGA 338 61-348 mg/dL ENDOMYSIAL AB PROFILE Reviewed date:08/19/2023 02:47:26 PM Interpretation: Performing Lab: Notes/Report: Original Ordering Provider: SANDRA FELICIANO MD ENDOMYSIAL AB NEGATIVE NEGATIVE C-REACTIVE PROTEIN Reviewed date:08/17/2023 09:03:54 AM Interpretation: Performing Lab: Notes/Report: [employer], [place] [address] Machine Erector - Cuca Madden MD C-REACTIVE PROTEIN 1.37 <0.5 mg/dl CBC WITH AUTO DIFF Reviewed date:08/17/2023 09:04:22 AM Interpretation: Performing Lab: Notes/Report: Original Ordering Provider: SANDRA FELICIANO MD [employer], [place] [address] Machine Erector - Cuca Madden MD WBC 6.4 4.8-10.8 x10-3/uL RBC 4.5 4.5-5.5 x10-6/uL HEMOGLOBIN 13.1 13.5-17.5 g/dL HEMATOCRIT 40.9 42-54 % MCV 91.5 79-98 fL MCH 29.3 27-32 pg MCHC 32.0 32-37 g/dL RDW 15.4 11-15 % PLT COUNT 245 130-400 x10-3/uL MEAN PLATELET VOLUME 9.4 7-11 fL NRBC % AUTO 0.0 <1 % NEUT % 69.3 LYMPH % 21.4 MONO % 6.6 EOS % 1.9 BASO % 0.5 IMMATURE GRANULOCYTES % 0.3 NRBC # AUTO 0.00 <0.1 x10-3/uL ABSOLUTE NEUT 4.42 1.5-7.0 x10-3/uL LYMPH # 1.36 1-5.0 x10-3/uL MONO # 0.42 0.2-1.0 x10-3/uL EOS # 0.12 0-0.5 x10-3/uL BASO # 0.03 0-0.2 x10-3/uL IMMATURE GRANULOCYTES # 0.02 0-0.03 x10-3/uL BASIC METABOLIC PANEL (BMP) Reviewed date:08/17/2023 09:04:11 AM Interpretation: Performing Lab: Notes/Report: Original Ordering Provider: SANDRA FELICIANO MD GLUCOSE 98 70-100 mg/dL Reference range applicable to fasting specimens only BUN 18 5-25 mg/dL CREAT 1.45 0.7-1.3 mg/dL GLOMERULAR FILTRATION RATE 49 >60 This eGFR result was calculated using the CKD-EPI 2020 Creatinine Equation SODIUM 141 135-145 mEq/L POTASSIUM 4.1 3.5-5.5 mmol/L CHLORIDE 110 96-110 mmol/L CO2 27 21-32 mmol/L ANION GAP 4 3-11 CALCIUM 9.4 8.5-10.5 mg/dL Reason For Referral Reason Evaluation and manag ement Diagnosis 1 Complaints of memory disturbance (R41.3) Referral Organization [facility] Referring Provider First Name HAN Referring Provider Last Name IRASEMA Referring Provider Speciality Internal edicine Referred Provider Specialty Neurology General Notes Referral sent to [facility] - Office will call patient for scheduling.Hailey Latraya 10/25/2023 02:12:43 PM > Referral Priority Routine Reason right hip and lumbar pain with need steroid injection Diagnosis 1 Pain in right hip (M 25.551) Diagnosis 2 Low back pain, unspe cified (M54.50) Referral Organization [facility] Referring Provider First Name Yuri Referring Provider Last Name Yusef Referring Provider Speciality Internal edicine Referred Provider Specialty Orthopedic S urgery General Notes [facility] Please call patient to schedule., Argenis Cotto 04/13/2024 01:33:21 PM > Referral Priority Routine Reason MRI showed labrum an d muscle tear; Please evaluate and treat Diagnosis 1 Gait instability (R2 6.81) Diagnosis 2 Pain in right hip (M 25.551) Referral Organization [facility] Referring Provider First Name Yuri Referring Provider Last Name Yusef Referring Provider Speciality Internal edicine Referred Provider Specialty Orthopedic S urgery General Notes Referral faxed to [facility]. Please contact the patient to schedule., Randee Sam 03/14/2024 09:04:54 AM > Referral Priority Urgent Reason Please evaluate and treat for severe spinal stenosis Diagnosis 1 Spinal stenosis, sit e unspecified (M48.00) Referral Organization [facility] Referring Provider First Name Yuri Referring Provider Last Name Yusef Referring Provider Speciality Internal edicine Referred Provider Specialty Neurological Surgery General Notes Referral faxed to [facility]. Please contact the patient to schedule., Randee Sam 03/14/2024 09:15:08 AM > Referral Priority Urgent Medications Medication SIG (Take, Route, Frequency, Duration) Notes Start Date End Date Status Aspir-Low 81 MG 1 tablet Orally Once a day 10/25/2023 Active Magnesium 250 MG 1 tablet with a meal Orally Once a day Active Tylenol 8 Hour Arthritis Pain 650 MG 2 tablets as needed Orally every 8 hrs Active Align Prebiotic-Probiotic 1 daily Active Cerefolin NAC 6-90.314-2-600 MG 1 tablet Orally Once a day for 90 days 04/21/2023 Not-Taking Multivitamin Adults - as directed Orally 1 tablet daily 06/11/2017 Active Allopurinol 300 MG TAKE 1 TABLET ONCE DAILY for 90 days Active Gemtesa 75 MG 1 tablet Orally Once a day for 30 days 10/21/2022 Not-Taking FeroSul 325 (65 Fe) MG 1 tablet Orally o nce a day for 90 days Active Eliquis 5 MG TAKE 1 TABLET TWICE A DAY Orally Twice a day for 90 days Not-Taking Memantine HCl ER 7 MG TAKE 1 CAPSULE BY MOUTH ONCE DAILY FOR 2 WEEKS, THEN 2 CAPS ONCE DAILY X2 WEEKS, THEN 3 CAPS ONCE DAILY FOR 2 WEEKS, THEN 4 CAPS DAILY THEREAFTER for 60 Active Donepezil HCl 10 MG TAKE 1 TABLET ONCE DAILY ATBEDTIME for 90 Active Torsemide 10 MG 1 tablet Orally Once a day for 90 days 11/12/2022 Not-Taking amLODIPine Besylate 5 MG TAKE 1 TABLET O NCE DAILY for 90 Active Omeprazole 20 MG TAKE 1 CAPSULE DAILY for 90 days Active Kyle Aspirin 325 MG 1 tablet Orally Onc e a day Not-Taking predniSONE 20 MG 1 tablet Orally Once a day for 7 days 02/27/2024 Not-Taking Fish Oil 1000 MG 2 capsules Orally On ce a day Not-Taking Plavix 75 MG 1 tablet Orally Once a day Not-Taking Immunizations Vaccine Route Administration Date Status Comme nts COVID 19 Pfizer Unknown 03/21/2020 Administered COVID 19 Pfizer Unknown 04/11/2020 Administered COVID 19 Pfizer Unknown 11/22/2020 Administered COVID-19 Pfizer Unknown 01/06/2022 Administered Flu Unknown 11/12/2021 Administered Influenza, high dose seasonal IM Intramuscular 10/26/2019 Administered Shingrix Unknown 11/12/2021 Administered Shingrix Unknown 03/01/2022 Administered Social History Tobacco Use: Social History Observation [...] s moked for 25 years, 1/2 ppd Problems Problem Type SNOMED Code ICD Code Onset Dates Problem Status W/U Status Risk Notes Problem Sleep apnea (58385910) Sleep apnea, unspecified (G47.30) Active confirmed Problem Obstructive sleep apnea syndrome (disorder) (47383371) Obstructive sleep apnea (adult) (pediatric) (G47.33) Active confirmed Problem Polyneuropathy (47182593) Polyneuropathy, unspecified (G62.9) Active confirmed Problem Essential hypertension (34324278) Essential (primary) hypertension (I10) Active confirmed Problem Intermittent claudication of bilateral lower limbs co-occurrent and due to atherosclerosis (35234132973460203 ) Atherosclerosis of [place] arteries of extremities with intermittent claudication, 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) Active confirmed Problem Gastro-esophageal reflux disease without esophagitis (212876163) Gastro-esophageal reflux disease without esophagitis (K21.9) Active confirmed Problem Gout (44814534) Gout, unspecifie d (M10.9) Active confirmed Problem Spinal stenosis (27402245) Spinal stenosis, site unspecified (M48.00) Active confirmed Problem Chronic kidney disease stage 2 (407034328) Chronic kidney disease, stage 2 (mild) (N18.2) Active confirmed Problem 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) Active confirmed Problem Abnormal gait (11053736) Other abnormalities of gait and mobility (R26.89) Active confirmed Problem Impaired fasting glucose (466395600) Impaired fasting glucose (R73.01) Active confirmed Problem Proteinuria (36988611) Proteinuria, unspecified (R80.9) Active confirmed Problem Adult health examination (361289391) Encounter for general adult medical examination without abnormal findings (Z00.00) Active confirmed Problem Lower urinary tract symptoms due to benign prostatic hypertrophy (99003540479672) Benign prostatic hyperplasia with lower urinary tract symptoms (N40.1) Active confirmed Problem Amnesia (98587594) Complaints of memory disturbance (R41.3) Active confirmed Problem Permanent atrial fibrillation (339697836) Permanent atrial fibrillation (I48.21) Active confirmed Problem Lumbar radiculopathy (372992185) Lumbar radiculopathy (M54.16) Active confirmed Problem Abnormal gait (96681286) Gait instability (R26.81) Active confirmed Vital Signs Heart Rate 69 /min 04/23/2024 Temperature 97.0 degrees Fahrenheit 04/23/2024 Blood pressure diastolic 75 mm Hg 04/23/2024 Oximetry 98 % 04/23/2024 Height 5'5 in 04/23/2024 Blood pressure systolic 130 mm Hg 04/23/2024 Weight 189.9 lbs 04/23/2024 BMI 31.6 kg/m2 04/23/2024 Encounters Encounter Location Date Provider Diagnosis [address] [address] 10/25/2023 HAN VILLALPANDO Encounter for genera l adult medical examination without abnormal findings Z00.00 ; Atherosclerosis of [place] arteries of extremities with intermittent claudication, bilateral legs I70.213 ; Unspecified atrial fibrillation I48.91 ; Essential (primary) hypertension I10 ; Gastro-esophageal reflux disease without esophagitis K21.9 ; Sleep apnea, unspecified G47.30 ; Impaired fasting glucose R73.01 ; Obstructive sleep apnea (adult) (pediatric) G47.33 and Complaints of memory disturbance R41.[address] [address] 02/09/2024 [place] Lumbar radiculopathy M54.[address] [address] 04/23/2024 [facility] Essential (primary) hypertension I10 ; Permanent atrial fibrillation I48.21 ; Complaints of memory disturbance R41.3 ; Impaired fasting glucose R73.01 ; Chronic kidney disease, stage 2 (mild) N18.2 ; Spinal stenosis, site unspecified M48.00 and Gout, unspecified M10.[address] [place] [address] 05/06/[address] [place] [address] 10/25/2023 [facility] Complaints of memory disturbance R41.[address] [place] [address] 01/04/[address] [place] [address] 01/10/[address] [place] [address] 02/27/2024 [facility] Lumbar radiculopathy M54.[address] [place] [address] 02/27/[address] [place] [address] 02/27/2024 [facility] Lumbar radiculopathy M54.[address] [place] [address] 02/27/[address] [place] [address] 03/19/[address] [place] [address] 04/13/[address] [place] [address] 03/14/2024 Yuri Catalan Encounter Date Diagnosis (ICD Code) Assessment Notes Treatment Notes Treatment Clinical Notes Section Notes 02/09/2024 Lumbar radiculopathy (ICD-10 - M54.16) 78-year-old gentleman with history of A. fib status post watchman procedure not on anticoagulation history of GI bleed gout came here for right hip pain and difficulty ambulating. Right hip pain, lumbar pain exam is suggestive of of possible lumbar radiculopathy versus the right hip osteoarthritis. Patient reports he has a history of spinal arthritis. He is taking Tylenol 650 in the morning and at night we will increase it to 3 times a day. We will give a short course of prednisone 20 mg daily for 5-7 days We will obtain an MRI of the right hip and lumbar spine to rule out any disc herniation or nerve impingement I will make a referral to orthopedics for a possible cortisone injection. If no improvement we will refer to physical therapy. Chronic medical condition A. fib Hypertension Gout Obstructive sleep apnea Continue all medications as before without any new changes 02/27/2024 Lumbar radiculopathy (ICD-10 - M54.16) 02/27/2024 Lumbar radiculopathy (ICD-10 - M54.16) 04/23/2024 Essential (primary) hypertension (ICD-10 - I10) [...] dose in future. Screening blood work ordered 10/25/2023 Encounter for general adult medical examination without abnormal findings (ICD-10 - Z00.00) Landon is a 77-year-old gentleman with hypertension, hyperlipidemia, atrial fibrillation, peripheral neuropathy and upper GI bleed here for Medicare annual wellness visit. Plan is as follows: Hypertension with proteinuria. Blood pressure well controlled on amlodipine 5 MG daily. Advised appropriate hydration. He sees Dr. Kenney. Atrial fibrillation. He is rate-controlled and and status post watchman. He is off Eliquis and Plavix and currently on aspirin 81 mg daily. His EKG is atrial fibrillation at 55 bpm with no acute ST or T wave changes, normal intervals. He sees Dr. Ford. Complaints of memory disturbance. Continue Aricept 10 MG and take it in the morning. Continue Cerefolin 6-90.314-2-600 MG and Memantine will be changed to Memantine ER 7 mg 1 tablet daily for 2 weeks then to 14 mg for 2 weeks and then to 21 mg for 2 weeks and then to 28 mg daily and continue. He does a lot of brain stimulating exercises and he also likes doing electronic works. Referred to Neurology. YONATHAN. Sleep stable on CPAP. GERD. Continue Omeprazole 20 MG daily. Gout. Stable on Allopurinol 300 MG daily. Iron deficiency anemia. Continue iron supplements. Class 1 obesity. Advised dietary restrictions and regimental exercise. Goal is to lose 5-6 lbs a month. Eye screening. He sees his busher helper regularly. Dental screening. He sees dentist regularly. Immunizations. He is up-to-date on his COVID, TDAP, influenz, shingles, and pneumonia vaccinations. General health concerns discussed with patient. Scribe services used to formulate this note under HIPAA compliance and under [place] law mandated for scribe services. Patient aware of service. Verbal consent and written consent taken from the patient. Patient understands and verbalizes understanding of the scribes services and all questions answered regarding scribes services. Patient agrees to use of scribes services. 10/25/2023 Complaints of memory disturbance (ICD-10 - R41.3) 04/23/2024 Permanent atrial fibrillation (ICD-10 - I48.21) [...] dose in future. Screening blood work ordered 10/25/2023 Atherosclerosis of [place] arteries of extremities with intermittent claudication, bilateral legs (ICD-10 - I70.213) Landon is a 77-year-old gentleman with hypertension, hyperlipidemia, atrial fibrillation, peripheral neuropathy and upper GI bleed here for Medicare annual wellness visit. Plan is as follows: Hypertension with proteinuria. Blood pressure well controlled on amlodipine 5 MG daily. Advised appropriate hydration. He sees Dr. Kenney. Atrial fibrillation. He is rate-controlled and and status post watchman. He is off Eliquis and Plavix and currently on aspirin 81 mg daily. His EKG is atrial fibrillation at 55 bpm with no acute ST or T wave changes, normal intervals. He sees Dr. Ford. Complaints of memory disturbance. Continue Aricept 10 MG and take it in the morning. Continue Cerefolin 6-90.314-2-600 MG and Memantine will be changed to Memantine ER 7 mg 1 tablet daily for 2 weeks then to 14 mg for 2 weeks and then to 21 mg for 2 weeks and then to 28 mg daily and continue. He does a lot of brain stimulating exercises and he also likes doing electronic works. Referred to Neurology. YONATHAN. Sleep stable on CPAP. GERD. Continue Omeprazole 20 MG daily. Gout. Stable on Allopurinol 300 MG daily. Iron deficiency anemia. Continue iron supplements. Class 1 obesity. Advised dietary restrictions and regimental exercise. Goal is to lose 5-6 lbs a month. Eye screening. He sees his busher helper regularly. Dental screening. He sees dentist regularly. Immunizations. He is up-to-date on his COVID, TDAP, influenz, shingles, and pneumonia vaccinations. General health concerns discussed with patient. Scribe services used to formulate this note under HIPAA compliance and under [place] law mandated for scribe services. Patient aware of service. Verbal consent and written consent taken from the patient. Patient understands and verbalizes understanding of the scribes services and all questions answered regarding scribes services. Patient agrees to use of scribes services. 04/23/2024 Impaired fasting glucose (ICD-10 - R73.01) [...] Follows up with Dr. London andujar and stable. Currently is on aspirin 81 mg daily [...] dose in future. Screening blood work ordered 10/25/2023 Unspecified atrial fibrillation (ICD-10 - I48.91) Landon is a 77-year-old gentleman with hypertension, hyperlipidemia, atrial fibrillation, peripheral neuropathy and upper GI bleed here for Medicare annual wellness visit. Plan is as follows: Hypertension with proteinuria. Blood pressure well controlled on amlodipine 5 MG daily. Advised appropriate hydration. He sees Dr. Kenney. Atrial fibrillation. He is rate-controlled and and status post watchman. He is off Eliquis and Plavix and currently on aspirin 81 mg daily. His EKG is atrial fibrillation at 55 bpm with no acute [address] or T wave changes, normal intervals. He sees Dr. Ford. Complaints of memory disturbance. Continue Aricept 10 MG and take it in the morning. Continue Cerefolin .314-2-600 MG and Memantine will be changed to Memantine ER 7 mg 1 tablet daily for 2 weeks then to 14 mg for 2 weeks and then to 21 mg for 2 weeks and then to 28 mg daily and continue. He does a lot of brain stimulating exercises and he also likes doing electronic works. Referred to Neurology. YONATHAN. Sleep stable on CPAP. GERD. Continue Omeprazole 20 MG daily. Gout. Stable on Allopurinol 300 MG daily. Iron deficiency anemia. Continue iron supplements. Class 1 obesity. Advised dietary restrictions and regimental exercise. Goal is to lose 5-6 lbs a month. Eye screening. He sees his busher helper regularly. Dental screening. He sees dentist regularly. Immunizations. He is up-to-date on his COVID, TDAP, influenz, shingles, and pneumonia vaccinations. General health concerns discussed with patient. Scribe services used to formulate this note under HIPAA compliance and under [place] law mandated for scribe services. Patient aware of service. Verbal consent and written consent taken from the patient. Patient understands and verbalizes understanding of the scribes services and all questions answered regarding scribes services. Patient agrees to use of scribes services. 10/25/2023 Essential (primary) hypertension (ICD-10 - I10) Landon is a 77-year-old gentleman with hypertension, hyperlipidemia, atrial fibrillation, peripheral neuropathy and upper GI bleed here for Medicare annual wellness visit. Plan is as follows: Hypertension with proteinuria. Blood pressure well controlled on amlodipine 5 MG daily. Advised appropriate hydration. He sees Dr. Kenney. Atrial fibrillation. He is rate-controlled and and status post watchman. He is off Eliquis and Plavix and currently on aspirin 81 mg daily. His EKG is atrial fibrillation at [address]pm with no acute ST or T wave changes, normal intervals. He sees Dr. Ford. Complaints of memory disturbance. Continue Aricept 10 MG and take it in the morning. Continue Cerefolin 6-90.314-2-600 MG and Memantine will be changed to Memantine ER 7 mg 1 tablet daily for 2 weeks then to 14 mg for 2 weeks and then to 21 mg for 2 weeks and then to 28 mg daily and continue. He does a lot of brain stimulating exercises and he also likes doing electronic works. Referred to Neurology. YONATHAN. Sleep stable on CPAP. GERD. Continue Omeprazole 20 MG daily. Gout. Stable on Allopurinol 300 MG daily. Iron deficiency anemia. Continue iron supplements. Class 1 obesity. Advised dietary restrictions and regimental exercise. Goal is to lose 5-6 lbs a month. Eye screening. He sees his busher helper regularly. Dental screening. He sees dentist regularly. Immunizations. He is up-to-date on his COVID, TDAP, influenz, shingles, and pneumonia vaccinations. General health concerns discussed with patient. Scribe services used to formulate this note under HIPAA compliance and under [place] law mandated for scribe services. Patient aware of service. Verbal consent and written consent taken from the patient. Patient understands and verbalizes understanding of the scribes services and all questions answered regarding scribes services. Patient agrees to use of scribes services. 04/23/2024 Chronic kidney disease, stage 2 (mild) [...] dose in future. Screening blood work ordered 10/25/2023 Gastro-esophageal reflux disease without esophagitis (ICD-10 - K21.9) Landon is a 77-year-old gentleman with hypertension, hyperlipidemia, atrial fibrillation, peripheral neuropathy and upper GI bleed here for Medicare annual wellness visit. Plan is as follows: Hypertension with proteinuria. Blood pressure well controlled on amlodipine 5 MG daily. Advised appropriate hydration. He sees Dr. Kenney. Atrial fibrillation. He is rate-controlled and and status post watchman. He is off Eliquis and Plavix and currently on aspirin 81 mg daily. His EKG is atrial fibrillation at [address] with no acute ST or T wave changes, normal intervals. He sees Dr. Ford. Complaints of memory disturbance. Continue Aricept 10 MG and take it in the morning. Continue Cerefolin 6-90.314-2-600 MG and Memantine will be changed to Memantine ER 7 mg 1 tablet daily for 2 weeks then to 14 mg for 2 weeks and then to 21 mg for 2 weeks and then to 28 mg daily and continue. He does a lot of brain stimulating exercises and he also likes doing electronic works. Referred to Neurology. YONATHAN. Sleep stable on CPAP. GERD. Continue Omeprazole 20 MG daily. Gout. Stable on Allopurinol 300 MG daily. Iron deficiency anemia. Continue iron supplements. Class 1 obesity. Advised dietary restrictions and regimental exercise. Goal is to lose 5-6 lbs a month. Eye screening. He sees his busher helper regularly. Dental screening. He sees dentist regularly. Immunizations. He is up-to-date on his COVID, TDAP, influenz, shingles, and pneumonia vaccinations. General health concerns discussed with patient. Scribe services used to formulate this note under HIPAA compliance and under [place] law mandated for scribe services. Patient aware of service. Verbal consent and written consent taken from the patient. Patient understands and verbalizes understanding of the scribes services and all questions answered regarding scribes services. Patient agrees to use of scribes services. 10/25/2023 Sleep apnea, unspecified (ICD-10 - G47.30) Landon is a 77-year-old gentleman with hypertension, hyperlipidemia, atrial fibrillation, peripheral neuropathy and upper GI bleed here for Medicare annual wellness visit. Plan is as follows: Hypertension with proteinuria. Blood pressure well controlled on amlodipine 5 MG daily. Advised appropriate hydration. He sees Dr. Kenney. Atrial fibrillation. He is rate-controlled and and status post watchman. He is off Eliquis and Plavix and currently on aspirin 81 mg daily. His EKG is atrial fibrillation at [address] with no acute ST or T wave changes, normal intervals. He sees Dr. Ford. Complaints of memory disturbance. Continue Aricept 10 MG and take it in the morning. Continue Cerefolin 6-90.314-2-600 MG and Memantine will be changed to Memantine ER 7 mg 1 tablet daily for 2 weeks then to 14 mg for 2 weeks and then to 21 mg for 2 weeks and then to 28 mg daily and continue. He does a lot of brain stimulating exercises and he also likes doing electronic works. Referred to Neurology. YONATHAN. Sleep stable on CPAP. GERD. Continue Omeprazole 20 MG daily. Gout. Stable on Allopurinol 300 MG daily. Iron deficiency anemia. Continue iron supplements. Class 1 obesity. Advised dietary restrictions and regimental exercise. Goal is to lose 5-6 lbs a month. Eye screening. He sees his busher helper regularly. Dental screening. He sees dentist regularly. Immunizations. He is up-to-date on his COVID, TDAP, influenz, shingles, and pneumonia vaccinations. General health concerns discussed with patient. Scribe services used to formulate this note under HIPAA compliance and under [place] law mandated for scribe services. Patient aware of service. Verbal consent and written consent taken from the patient. Patient understands and verbalizes understanding of the scribes services and all questions answered regarding scribes services. Patient agrees to use of scribes services. 04/23/2024 Gout, unspecified (ICD-10 - M10.9) Landon [...] Follows up with Dr. London andujar and stable. Currently is on aspirin 81 mg daily [...] dose in future. Screening blood work ordered 10/25/2023 Impaired fasting glucose (ICD-10 - R73.01) Landon is a 77-year-old gentleman with hypertension, hyperlipidemia, atrial fibrillation, peripheral neuropathy and upper GI bleed here for Medicare annual wellness visit. Plan is as follows: Hypertension with proteinuria. Blood pressure well controlled on amlodipine 5 MG daily. Advised appropriate hydration. He sees Dr. Kenney. Atrial fibrillation. He is rate-controlled and and status post watchman. He is off Eliquis and Plavix and currently on aspirin 81 mg daily. His EKG is atrial fibrillation at [address]pm with no acute ST or T wave changes, normal intervals. He sees Dr. Ford. Complaints of memory disturbance. Continue Aricept 10 MG and take it in the morning. Continue Cerefolin .314-2-600 MG and Memantine will be changed to Memantine ER 7 mg 1 tablet daily for 2 weeks then to 14 mg for 2 weeks and then to 21 mg for 2 weeks and then to 28 mg daily and continue. He does a lot of brain stimulating exercises and he also likes doing electronic works. Referred to Neurology. YONATHAN. Sleep stable on CPAP. GERD. Continue Omeprazole 20 MG daily. Gout. Stable on Allopurinol 300 MG daily. Iron deficiency anemia. Continue iron supplements. Class 1 obesity. Advised dietary restrictions and regimental exercise. Goal is to lose 5-6 lbs a month. Eye screening. He sees his busher helper regularly. Dental screening. He sees dentist regularly. Immunizations. He is up-to-date on his COVID, TDAP, influenz, shingles, and pneumonia vaccinations. General health concerns discussed with patient. Scribe services used to formulate this note under HIPAA compliance and under [place] law mandated for scribe services. Patient aware of service. Verbal consent and written consent taken from the patient. Patient understands and verbalizes understanding of the scribes services and all questions answered regarding scribes services. Patient agrees to use of scribes services. 10/25/2023 Obstructive sleep apnea (adult) (pediatric) (ICD-10 - G47.33) Landon is a 77-year-old gentleman with hypertension, hyperlipidemia, atrial fibrillation, peripheral neuropathy and upper GI bleed here for Medicare annual wellness visit. Plan is as follows: Hypertension with proteinuria. Blood pressure well controlled on amlodipine 5 MG daily. Advised appropriate hydration. He sees Dr. Kenney. Atrial fibrillation. He is rate-controlled and and status post watchman. He is off Eliquis and Plavix and currently on aspirin 81 mg daily. His EKG is atrial fibrillation at 55 [address]pm with no acute ST or T wave changes, normal intervals. He sees Dr. Ford. Complaints of memory disturbance. Continue Aricept 10 MG and take it in the morning. Continue Cerefolin 6-90.314-2-600 MG and Memantine will be changed to Memantine ER 7 mg 1 tablet daily for 2 weeks then to 14 mg for 2 weeks and then to 21 mg for 2 weeks and then to 28 mg daily and continue. He does a lot of brain stimulating exercises and he also likes doing electronic works. Referred to Neurology. YONATHAN. Sleep stable on CPAP. GERD. Continue Omeprazole 20 MG daily. Gout. Stable on Allopurinol 300 MG daily. Iron deficiency anemia. Continue iron supplements. Class 1 obesity. Advised dietary restrictions and regimental exercise. Goal is to lose 5-6 lbs a month. Eye screening. He sees his busher helper regularly. Dental screening. He sees dentist regularly. Immunizations. He is up-to-date on his COVID, TDAP, influenz, shingles, and pneumonia vaccinations. General health concerns discussed with patient. Scribe services used to formulate this note under HIPAA compliance and under [place] law mandated for scribe services. Patient aware of service. Verbal consent and written consent taken from the patient. Patient understands and verbalizes understanding of the scribes services and all questions answered regarding scribes services. Patient agrees to use of scribes services. 10/25/2023 Complaints of memory disturbance (ICD-10 - R41.3) Landon is a 77-year-old gentleman with hypertension, hyperlipidemia, atrial fibrillation, peripheral neuropathy and upper GI bleed here for Medicare annual wellness visit. Plan is as follows: Hypertension with proteinuria. Blood pressure well controlled on amlodipine 5 MG daily. Advised appropriate hydration. He sees Dr. Kenney. Atrial fibrillation. He is rate-controlled and and status post watchman. He is off Eliquis and Plavix and currently on aspirin 81 mg daily. His EKG is atrial fibrillation at 55 [address]pm with no acute ST or T wave changes, normal intervals. He sees Dr. Ford. Complaints of memory disturbance. Continue Aricept 10 MG and take it in the morning. Continue Cerefolin 6-90.314-2-600 MG and Memantine will be changed to Memantine ER 7 mg 1 tablet daily for 2 weeks then to 14 mg for 2 weeks and then to 21 mg for 2 weeks and then to 28 mg daily and continue. He does a lot of brain stimulating exercises and he also likes doing electronic works. Referred to Neurology. YONATHAN. Sleep stable on CPAP. GERD. Continue Omeprazole 20 MG daily. Gout. Stable on Allopurinol 300 MG daily. Iron deficiency anemia. Continue iron supplements. Class 1 obesity. Advised dietary restrictions and regimental exercise. Goal is to lose 5-6 lbs a month. Eye screening. He sees his busher helper regularly. Dental screening. He sees dentist regularly. Immunizations. He is up-to-date on his COVID, TDAP, influenz, shingles, and pneumonia vaccinations. General health concerns discussed with patient. Scribe services used to formulate this note under HIPAA compliance and under [place] law mandated for scribe services. Patient aware of service. Verbal consent and written consent taken from the patient. Patient understands and verbalizes understanding of the scribes services and all questions answered regarding scribes services. Patient agrees to use of scribes services. Plan Of Treatment Pending Test Test Name Order Date MRI : Hip, right 02/09/2024 Electrocardiogram (EKG) 06/21/2017 Lipid Panel 06/21/2017 MRI : Lumbar without contrast 02/09/2024 MICROALBUMIN,URINE 06/21/2017 CBC (COMPLETE BLOOD COUNT) 11/02/2019 COMPREHENSIVE METABOLIC PANEL 01/07/2022 HEMOGLOBIN A1C 08/14/2021 MICROALBUMIN, URINE 01/07/2022 COMPREHENSIVE METABOLIC PANEL 06/21/2017 Future Test Test Name Order Date Uric [id number] 04/23/2024 Hemoglobin [id number] 04/23/2024 Albumin/Creatinine Ratio,Urine-[id number] Lipid Panel-[id number] 04/23/2024 Comp. Metabolic Panel [id number] 2024 Next Appt Details Provider Name:HAN VILLALPANDO , 10/30/2024 10:00:00 AM, [address] [place] [address], [phone], Insurance Providers Payer Name Payer Address Payer Phone Subscriber Number Group Number Insured Name Patient Relationship to Insured Coverage Start Date Coverage End Date Medicare [address] [place] [address] [id number] Landon Sage Self - patient is the insured [employer] ([employer]) [address] [place] [address] [id number] Landon Sage Self - patient is the insured Medical (General) History Medical History History ICD Code Atrial fibrillation and see Dr Ford stopped BB because of Pauses on Holter, AND S/P Watchman GERD GOUT Anxiety disorder Obstructive sleep apnea Proteinuria and he sees Dr. 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
--- OUTSIDE RECORDS SUMMARY | 2024-04-26 11:53 | XMS_ITS ---
Author Organization [facility] Address [address] [address] Care Team Providers Care Structures Technician Name Role Phone HAN VILLALPANDO Primary Care Provider [phone] REASON FOR VISIT Referral to Orthopedics Encounters Encounter Location Date Provider Diagnosis [facility] [address] [address] 04/13/2024 HAN VILLALPANDO Plan Of Treatment Next Appt Details Provider Name:HAN VILLALPANDO , 10/30/2024 10:00:00 AM, [address] [facility] [address], [place], [address], Progress Notes * Landon THORNTONDOB:1945 (78 yo M)Acc No.[id number]:04/13/2024 Patient:?Landon THORNTON :1945???Age:78 Y???Sex:Male Address:[address] [place], [place] [address] [address] * true * Date:? Generated for Velasquez rivera/Darline/eTransmitting on:?04/26/2024 11:52 AM EST
--- OUTSIDE RECORDS SUMMARY | 2024-04-26 11:53 | XMS_ITS | Encounter Summary ---
Author Organization [facility] Address [address] [place] [address] Phone Care Team Providers Care Spinner Concrete Pipe Name Role Phone El Ramesh MD Primary Care Provider [phone] Encounter Details Date Type Department Care Team ([facility] st Contact Info) Description 04/20/2024 Orders Only [facility] [address] [address] Armaan Kenney MD Social History Tobacco Use Types Packs/Day Years [...] on file Sexual Orientation Not on file documented as of this encounter Plan of Treatment Not on file documented as of this encounter Procedures Procedure Name Priority Date/Time Associated Diagnosis Comments CBC AND DIFFERENTIAL Routine 04/20/2024 8:53 AM EST BUN Routine 04/20/2024 8:53 AM EST CREATININE, SERUM Routine 04/20/2024 8:5 3 AM EST CALCIUM Routine 04/20/2024 8:53 AM EST ELECTROLYTE PANEL Routine 04/20/2024 8:5 3 AM EST documented in this encounter Results * Calcium (04/20/2024 8:53 AM EST) Calcium 9.4 8.6 - 10.2 mg/dL [facility] 04/20/2024 8:53 AM EST 04/20/2024 Armaan Kenney MD LAB BLOOD ORDERABLES Final Resul t Performing Organization Address City/[facility]/ZIP Co de Phone Number [facility] [address] [place] [address] * (ABNORMAL) Creatinine, serum (04/20/2024 8:53 AM EST) Creatinine 1.63(H) 0.76 - 1.27 mg/dL [facility] eGFR CKD-EPI CR 2020 42(L) >59 mL/min/1.7 3 [facility] 04/20/2024 8:53 AM EST 04/20/2024 Armaan Kenney MD LAB BLOOD ORDERABLES Final Resul t Performing Organization Address [facility] Co de Phone Number [facility] [address] [place] [address] * BUN (04/20/2024 8:53 AM EST) BUN 17 8 - 27 mg/dL [facility] 04/20/2024 8:53 AM EST 04/20/2024 Armaan Kenney MD LAB BLOOD ORDERABLES Final Resul t Performing Organization Address City/[facility] Co de Phone Number [facility] [address] [place] [address] * Electrolyte panel (04/20/2024 8:53 AM EST) Sodium 140 134 - 144 mmol/L [facility] Potassium 4.7 3.5 - 5.2 mmol/L [facility] Chloride 106 96 - 106 mmol/L [facility] Bicarbonate (CO2) 22 20 - 29 mmol/L [facility] 04/20/2024 8:53 AM EST 04/20/2024 us Armaan Kenney MD LAB BLOOD ORDERABLES Final Resul t [facility] [address] [place] [address] * (ABNORMAL) CBC and Differential (04/20/2024 8:53 AM EST) Pathologist [facility] WBC 7.5 3.4 - 10.8 x10E3/uL [facility] RBC 3.94(L) 4.14 - 5.80 x10E6/uL [facility] Hemoglobin 10.0(L) 13.0 - 17.7 g/dL [facility] Hematocrit 33.5(L) 37.5 - 51.0 % [facility] MCV 85 79 - 97 fL [facility] MCH 25.4(L) 26.6 - 33.0 pg [facility] MCHC 29.9(L) 31.5 - 35.7 g/dL [facility] RDW 15.8(H) 11.6 - 15.4 % [facility] Platelets 309 150 - 450 x10E3/uL [facility] Neutrophils Relative 68 Not Estab. % [facility] Lymphocytes Relative 22 Not Estab. % [facility] Monocytes 7 Not Estab. % [facility] Eosinophils Relative 2 Not Estab. % [facility] Basophils Relative 1 Not Estab. % [facility] Neutrophils Absolute 5.1 1.4 - 7.0 x10E3/uL [facility] Lymphocytes Absolute 1.7 0.7 - 3.1 x10E3/uL [facility] Monocytes Absolute 0.5 0.1 - 0.9 x10E3/uL [facility] Eosinophils Absolute 0.1 0.0 - 0.4 x10E3/uL [facility] Basophils Absolute 0.0 0.0 - 0.2 x10E3/uL [facility] Immature Granulocytes 0 Not Estab. % [facility] Immature Grans (Absolute) 0.0 0.0 - 0.1 x10E3/uL [facility] 04/20/2024 8:53 AM EST 04/20/2024 us Armaan Kenney MD LAB BLOOD ORDERABLES Final Resul t [facility] [address] [place] [address] documented in this encounter Visit Diagnoses Not on filedocumented in this encounter Care Teams Spinner Concrete Pipe Relationship Specialty Start Date End Date El Ramesh MD [address] [place] [address] PCP - General 03/03/20 documented as of this encounter
--- OUTSIDE RECORDS SUMMARY | 2024-04-26 11:53 | XMS_ITS ---
Author Organization [facility] Address [address] [place] [address] Care Team Providers Care Billing And Accounting Staff Assistant Name Role Phone HAN VILLALPANDO Primary Care Provider REASON FOR VISIT MRI result/ Referral Encounters Encounter Location Date Provider Diagnosis [facility] [address] [address] 03/19/2024 HAN VILLALPANDO Plan Of Treatment Next Appt Details Provider Name:HAN VILLALPANDO , 10/30/2024 10:00:00 AM, [address] [place] [address], [place], [address], Progress Notes * Landon SAGEDOB:1945 (78 yo M)Acc No.[id number]:03/19/2024 Patient:?Landon SAGE :1945???Age:78 Y???Sex:Male Address:[address] [place], [place] [address] [address] * true * Date:? Generated for Printi ng/Darlnie/eTransmitting on:?04/26/2024 11:52 AM EST
== END 2024-04-26 10:55 | disposition home or self-care (01) ==
PROVIDERS: PCP Hospitalist; Visit Provider Internal Medicine Nephrology
DX: N18.31 Chronic kidney disease, stage 3a (principal); I10 Essential (primary) hypertension
CPT/HCPCS: 99214

== ENCOUNTER → 2024-04-26 10:08 | Outpatient (BNVA) | payer MEDICARE, OTHER, SELFPAY | PROVIDERS: PCP Hospitalist; Visit Provider Internal Medicine Nephrology | DX: I12.9 Hypertensive chronic kidney disease with stage 1 through stage 4 chronic kidney disease, or unspecified chronic kidney disease (principal); N18.31 Chronic kidney disease, stage 3a | CPT/HCPCS: 99212 ==

== ENCOUNTER 2024-11-01 10:19 | Outpatient (AMB) | payer MEDICARE, OTHER, SELFPAY ==
--- OUTSIDE RECORDS SUMMARY | 2024-10-30 06:00 | XMS_ITS ---
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 Name Role Phone HAN VILLALPANDO Primary Care Provider Allergies No Known Allergies REASON FOR VISIT Medicare Wellness Medications Medication SIG (Take, Route, Frequency, Duration) Notes Start Date End Date Status Torsemide 10 MG 1 tablet Orally Once a day; Duration: 90 days 11/12/2022 Not-Takin g Eliquis 5 MG TAKE 1 TABLET TWICE A DAY Orally Twice a day; Duration: 90 days Not-Takin g Gemtesa 75 MG 1 tablet Orally Once a day; Duration: 30 days 10/21/2022 Not-Takin g Fish Oil 1000 MG 2 capsules Orally On ce a day Not-Taking Cerefolin NAC [id number] MG 1 tablet Orally Once a day; Duration: 90 days 04/21/2023 Not-Takin g predniSONE 20 MG 1 tablet Orally Once a day; Duration: 7 days 02/27/2024 Not-Taking Allopurinol 300 MG TAKE 1 TABLET ONCE DAILY; Duration: 90 days Active Memantine HCl ER 7 MG 4 capsules Orally Once a day; Duration: 90 days Active Kyle Aspirin 325 MG 1 tablet Orally Onc e a day Not-Taking Plavix 75 MG 1 tablet Orally Once a day Not-Taking amLODIPine Besylate 10 MG TAKE 1 TABLET ONCE DAILY; Duration: 90 days Active FeroSul 325 (65 Fe) MG 1 tablet Orally o nce a day; Duration: 90 days Active Omeprazole 20 MG TAKE 1 CAPSULE DAILY ; Duration: 90 days Active Multivitamin Adults - as directed Orally 1 tablet daily 06/11/2017 Active Align Prebiotic-Probiotic 1 daily Active Aspir-Low 81 MG 1 tablet Orally Once a day 10/25/2023 Active Tylenol 8 Hour Arthritis Pain 650 MG 2 tablets as needed Orally every 8 hrs Active Donepezil HCl 10 MG TAKE 2 TABLET AT BEDTIME Orally Once a day; Duration: 90 days Active Rosuvastatin Calcium 5 MG 1 tablet Orally Once a day; Duration: 90 days 10/30/2024 Active Magnesium 250 MG 1 tablet with a meal Orally Once a day Active Social History Tobacco Use: Social History [...] Problem Status W/U Status Risk Notes Problem Chronic kidney disease stage 3B (disorder) (188439473) Chronic kidney disease, stage 3b (N18.32) Active confirmed Problem Chronic kidney disease due to hypertension (753318249586694) Hypertensive chronic kidney disease with stage 1 through stage 4 chronic kidney disease, or unspecified chronic kidney disease (I12.9) Active confirmed Problem Mixed hyperlipidemia (440926618) Mixed hyperlipidemia (E78.2) Active confirmed Problem Gastrointestinal hemorrhage (82536762) Gastrointestinal hemorrhage, unspecified (K92.2) Active confirmed Vital Signs Temperature 97.3 degrees Fahrenheit 10/31/19 25 Oximetry 98 % 10/30/2024 Heart Rate 99 /min 10/30/2024 Blood pressure systolic 130 mm Hg 10/31/19 25 Blood pressure diastolic 82 mm Hg 025 Weight 193.7 lbs 10/30/2024 BMI 32.23 kg/m2 10/30/2024 Height 5'5 in 10/30/2024 Encounters Encounter Location Date Provider Diagnosis [facility] [address] [place] [address] 10/30/2024 HAN VILLALPANDO Encounter for genera l adult medical examination without abnormal findings Z00.00 ; Essential (primary) hypertension I10 ; Permanent atrial fibrillation I48.21 ; Chronic kidney disease, stage 3b N18.32 ; Hypertensive chronic kidney disease with stage 1 through stage 4 chronic kidney disease, or unspecified chronic kidney disease I12.9 ; Obstructive sleep apnea (adult) (pediatric) G47.33 ; Benign prostatic hyperplasia with lower urinary tract symptoms N40.1 and Mixed hyperlipidemia E78.2 Assessments Encounter Date Diagnosis (ICD Code) Assessment Notes Treatment Notes Treatment Clinical Notes Section Notes 10/30/2024 Encounter for general adult medical examination without abnormal findings (ICD-10 - Z00.00) Landon is a 78-year-old gentleman with hypertension, hyperlipidemia, atrial fibrillation, peripheral neuropathy, progressive dementia, obstructive sleep apnea and upper GI bleed, lumbar stenosis and right hip joint pain he is here annual physical. plan is as follows Hypertension. Blood pressure well controlled on current regimen of amlodipine 10 mg daily. Hyperlipidemia. Lipid panel is not within recommended range. Considering his comorbidities we will start on Crestor 5 mg daily. Side effects explained and check lipid panel in 6 weeks. Atrial fibrillation. His rate control and he is not on anticoagulation because of history of GI bleed. Gout. Stable and continue on allopurinol 300 mg 1 tablet daily Chronic kidney disease stage IIIb. He does not appear to be in volume overload and he stable. Avoid NSAIDs and he follows up with Dr. Kenney. BPH. Stable at this point. Acid reflux. Continue on omeprazole 20 mg 1 tablet daily and dietary restrictions discussed with the patient. Progressive dementia. Most likely vascular dementia considering his comorbidities. Increase Aricept to 20 mg daily and continue on memantine 7 mg and he takes 2 tablets. He is up-to-date on age specific screening. He is full code and his is his healthcare proxy. 10/30/2024 Essential (primary) hypertension (ICD-10 - I10) Landon is a 78-year-old gentleman with hypertension, hyperlipidemia, atrial fibrillation, peripheral neuropathy, progressive dementia, obstructive sleep apnea and upper GI bleed, lumbar stenosis and right hip joint pain he is here annual physical. plan is as follows Hypertension. Blood pressure well controlled on current regimen of amlodipine 10 mg daily. Hyperlipidemia. Lipid panel is not within recommended range. Considering his comorbidities we will start on Crestor 5 mg daily. Side effects explained and check lipid panel in 6 weeks. Atrial fibrillation. His rate control and he is not on anticoagulation because of history of GI bleed. Gout. Stable and continue on allopurinol 300 mg 1 tablet daily Chronic kidney disease stage IIIb. He does not appear to be in volume overload and he stable. Avoid NSAIDs and he follows up with Dr. Kenney. BPH. Stable at this point. Acid reflux. Continue on omeprazole 20 mg 1 tablet daily and dietary restrictions discussed with the patient. Progressive dementia. Most likely vascular dementia considering his comorbidities. Increase Aricept to 20 mg daily and continue on memantine 7 mg and he takes 2 tablets. He is up-to-date on age specific screening. He is full code and his is his healthcare proxy. 10/30/2024 Permanent atrial fibrillation (ICD-10 - I48.21) Landon is a 78-year-old gentleman with hypertension, hyperlipidemia, atrial fibrillation, peripheral neuropathy, progressive dementia, obstructive sleep apnea and upper GI bleed, lumbar stenosis and right hip joint pain he is here annual physical. plan is as follows Hypertension. Blood pressure well controlled on current regimen of amlodipine 10 mg daily. Hyperlipidemia. Lipid panel is not within recommended range. Considering his comorbidities we will start on Crestor 5 mg daily. Side effects explained and check lipid panel in 6 weeks. Atrial fibrillation. His rate control and he is not on anticoagulation because of history of GI bleed. Gout. Stable and continue on allopurinol 300 mg 1 tablet daily Chronic kidney disease stage IIIb. He does not appear to be in volume overload and he stable. Avoid NSAIDs and he follows up with Dr. Kenney. BPH. Stable at this point. Acid reflux. Continue on omeprazole 20 mg 1 tablet daily and dietary restrictions discussed with the patient. Progressive dementia. Most likely vascular dementia considering his comorbidities. Increase Aricept to 20 mg daily and continue on memantine 7 mg and he takes 2 tablets. He is up-to-date on age specific screening. He is full code and his is his healthcare proxy. 10/30/2024 Chronic kidney disease, stage 3b (ICD-10 - N18.32) Landon is a 78-year-old gentleman with hypertension, hyperlipidemia, atrial fibrillation, peripheral neuropathy, progressive dementia, obstructive sleep apnea and upper GI bleed, lumbar stenosis and right hip joint pain he is here annual physical. plan is as follows Hypertension. Blood pressure well controlled on current regimen of amlodipine 10 mg daily. Hyperlipidemia. Lipid panel is not within recommended range. Considering his comorbidities we will start on Crestor 5 mg daily. Side effects explained and check lipid panel in 6 weeks. Atrial fibrillation. His rate control and he is not on anticoagulation because of history of GI bleed. Gout. Stable and continue on allopurinol 300 mg 1 tablet daily Chronic kidney disease stage IIIb. He does not appear to be in volume overload and he stable. Avoid NSAIDs and he follows up with Dr. Kenney. BPH. Stable at this point. Acid reflux. Continue on omeprazole 20 mg 1 tablet daily and dietary restrictions discussed with the patient. Progressive dementia. Most likely vascular dementia considering his comorbidities. Increase Aricept to 20 mg daily and continue on memantine 7 mg and he takes 2 tablets. He is up-to-date on age specific screening. He is full code and his is his healthcare proxy. 10/30/2024 Hypertensive chronic kidney disease with stage 1 through stage 4 chronic kidney disease, or unspecified chronic kidney disease (ICD-10 - I12.9) Landon is a 78-year-old gentleman with hypertension, hyperlipidemia, atrial fibrillation, peripheral neuropathy, progressive dementia, obstructive sleep apnea and upper GI bleed, lumbar stenosis and right hip joint pain he is here annual physical. plan is as follows Hypertension. Blood pressure well controlled on current regimen of amlodipine 10 mg daily. Hyperlipidemia. Lipid panel is not within recommended range. Considering his comorbidities we will start on Crestor 5 mg daily. Side effects explained and check lipid panel in 6 weeks. Atrial fibrillation. His rate control and he is not on anticoagulation because of history of GI bleed. Gout. Stable and continue on allopurinol 300 mg 1 tablet daily Chronic kidney disease stage IIIb. He does not appear to be in volume overload and he stable. Avoid NSAIDs and he follows up with Dr. Kenney. BPH. Stable at this point. Acid reflux. Continue on omeprazole 20 mg 1 tablet daily and dietary restrictions discussed with the patient. Progressive dementia. Most likely vascular dementia considering his comorbidities. Increase Aricept to 20 mg daily and continue on memantine 7 mg and he takes 2 tablets. He is up-to-date on age specific screening. He is full code and his is his healthcare proxy. 10/30/2024 Obstructive sleep apnea (adult) (pediatric) (ICD-10 - G47.33) Landon is a 78-year-old gentleman with hypertension, hyperlipidemia, atrial fibrillation, peripheral neuropathy, progressive dementia, obstructive sleep apnea and upper GI bleed, lumbar stenosis and right hip joint pain he is here annual physical. plan is as follows Hypertension. Blood pressure well controlled on current regimen of amlodipine 10 mg daily. Hyperlipidemia. Lipid panel is not within recommended range. Considering his comorbidities we will start on Crestor 5 mg daily. Side effects explained and check lipid panel in 6 weeks. Atrial fibrillation. His rate control and he is not on anticoagulation because of history of GI bleed. Gout. Stable and continue on allopurinol 300 mg 1 tablet daily Chronic kidney disease stage IIIb. He does not appear to be in volume overload and he stable. Avoid NSAIDs and he follows up with Dr. Kenney. BPH. Stable at this point. Acid reflux. Continue on omeprazole 20 mg 1 tablet daily and dietary restrictions discussed with the patient. Progressive dementia. Most likely vascular dementia considering his comorbidities. Increase Aricept to 20 mg daily and continue on memantine 7 mg and he takes 2 tablets. He is up-to-date on age specific screening. He is full code and his is his healthcare proxy. 10/30/2024 Benign prostatic hyperplasia with lower urinary tract symptoms (ICD-10 - N40.1) Landon is a 78-year-old gentleman with hypertension, hyperlipidemia, atrial fibrillation, peripheral neuropathy, progressive dementia, obstructive sleep apnea and upper GI bleed, lumbar stenosis and right hip joint pain he is here annual physical. plan is as follows Hypertension. Blood pressure well controlled on current regimen of amlodipine 10 mg daily. Hyperlipidemia. Lipid panel is not within recommended range. Considering his comorbidities we will start on Crestor 5 mg daily. Side effects explained and check lipid panel in 6 weeks. Atrial fibrillation. His rate control and he is not on anticoagulation because of history of GI bleed. Gout. Stable and continue on allopurinol 300 mg 1 tablet daily Chronic kidney disease stage IIIb. He does not appear to be in volume overload and he stable. Avoid NSAIDs and he follows up with Dr. Kenney. BPH. Stable at this point. Acid reflux. Continue on omeprazole 20 mg 1 tablet daily and dietary restrictions discussed with the patient. Progressive dementia. Most likely vascular dementia considering his comorbidities. Increase Aricept to 20 mg daily and continue on memantine 7 mg and he takes 2 tablets. He is up-to-date on age specific screening. He is full code and his is his healthcare proxy. 10/30/2024 Mixed hyperlipidemia (ICD-10 - E78.2) Landon is a 78-year-old gentleman with hypertension, hyperlipidemia, atrial fibrillation, peripheral neuropathy, progressive dementia, obstructive sleep apnea and upper GI bleed, lumbar stenosis and right hip joint pain he is here annual physical. plan is as follows Hypertension. Blood pressure well controlled on current regimen of amlodipine 10 mg daily. Hyperlipidemia. Lipid panel is not within recommended range. Considering his comorbidities we will start on Crestor 5 mg daily. Side effects explained and check lipid panel in 6 weeks. Atrial fibrillation. His rate control and he is not on anticoagulation because of history of GI bleed. Gout. Stable and continue on allopurinol 300 mg 1 tablet daily Chronic kidney disease stage IIIb. He does not appear to be in volume overload and he stable. Avoid NSAIDs and he follows up with Dr. Kenney. BPH. Stable at this point. Acid reflux. Continue on omeprazole 20 mg 1 tablet daily and dietary restrictions discussed with the patient. Progressive dementia. Most likely vascular dementia considering his comorbidities. Increase Aricept to 20 mg daily and continue on memantine 7 mg and he takes 2 tablets. He is up-to-date on age specific screening. He is full code and his is his healthcare proxy. Plan Of Treatment Medication Medication Name Sig Start Date Stop Date Notes Donepezil HCl 10 MG TAKE 2 TABLET AT BED TIME Orally Once a day; Duration: 90 days Rosuvastatin Calcium 5 MG 1 tablet Orall y Once a day; Duration: 90 days 10/30/2024 Next Appt Details Follow Up: 6 Months, Reason: Provider Name:HAN VILLALPANDO , 04/30/2025 09:00:00 AM, [address], [address], Progress Notes * Naresh THORNTON:1945 (78 yo M)Acc No.[id number]:10/30/2024 Progress Note Patient: Landon MORRIS Provider: Artur VILLALPANDO MD :1945 A ge:78 Y S ex:Male Date:10/30/2024 Address:[address] [place] [address] [id number] Subjective: * Chief Complaints: * [facility] * HPI: I nternal Medicine: Landon is a 78-year-old gentleman with hypertension, hyperlipidemia, atrial fibrillation, peripheral neuropathy, progressive dementia, obstructive sleep apnea and upper GI bleed, lumbar stenosis and right hip joint pain he is here annual physical. He is accompanied by his . He also has progressive dementia which most likely secondary to vascular dementia. His vision and hearing is stable. He can function independently. No or GI issues. She is not anxious or depressed. He has multiple joint osteoarthritis and spinal stenosis and he follows up with D sarah Christie for spinal stenosis and have an intra-facet injection in the neck.? He has pain in the right hip joint and is seeing Dr. Rodriguez in the past.no other acute issues. [facility] Team: - N o Providers on Record. Artur bauman Annual Visit: Type of Visit - S ubsequent Annual Wellness Visit Language or Communication barrier addressed - Y es Health Risk Assessment D EMOGRAPHICS - - How old are you? 8 0 or older - How would you best describe your ethnicity??Non- White - How would you describe your marital status?? - How would you describe your employment status? R etired - How many children do you have? t hree R ISK ASSESSMENT - - Do you currently use tobacco products? N o - Have you ever used tobacco products? Y es, more than two years ago - What type of tobacco do you use or have you used? _ _,Cigarettes - (If cigarette smoker) How long have you smoked? 1 1-15 years - (If cigarette smoker) How many cigarettes do you smoke per day? 1 1-20 - How many alcoholic beverages (i.e. 1oz hard liquor, one glass of wine, one bottle of beer) do you drink daily, on average? N one - Have you ever felt the need to cut down on drinking? N o - Have people annoyed you with criticism of your drinking? N o - Do you or have you felt guilty for drinking? N o - Have you ever felt the need to drink first thing in the morning to steady your nerves or to get rid of a hangover? N o - How often do you exercise? O ften - How vigorously can you exercise? M inimally - How often do you use seatbelts? A lways - In the past month, how often have you had sex? _ _ - Do you have any significant difficulties or dysfunction during sex? N o, never - How many partners do you have? _ _ - How often do you experience pain with sex??Never - How often do you use condoms during sex??Always M ENTAL HEALTH ASSESSMENT - - In the past two weeks, how often have you felt depressed, down or hopeless? N ever - In the past month, how often have you felt anxious or stressed? N ever - What is your average level of daily stress??None - In the past two weeks, how often have you felt a lack of pleasure or interest in doing things? N ever - In the past two weeks, how often have you had difficulty falling asleep or episodes of sleeping too long? N ever - In the past two weeks, how often have you had a lack of energy? N ever - In the past two weeks, how often have you had feelings of being better off or thoughts of harming yourself? N ever - Have you ever attempted to harm yourself??No G ENERAL HEALTH/PAIN ASSESSMENT - - In the past month, how often did you experience pain? N ever - In the past month, how much has pain affected your ability to work? N ot at all - In the past month, how much has pain affected your ability to walk? N ot at all - In the past month, how much has pain affected your relationship with other people? N ot at all - On a scale of 1-10, how bad would you rate your average daily pain? N o pain - How would you describe the ease with which you can prepare your own food? V myles easy - How would you describe the ease with which you can bathe or clean yourself? V myles easy - How would you describe the ease with which you can dress yourself? V myles easy - How hard is it to use the toilet by yourself? N ot hard at all - How would you describe the ease with which you can do your own shopping? V myles easy - How would you describe the ease with which you can get around your house? V myles easy - How would you describe your ability to pay your bills? V myles good - How would you describe your ability to plan your daily and monthly budgets? V myles good - How would you describe your ability to do routine housework? Burton myles good H OME SAFETY/ASSISTANCE - - Do you feel like you are safe in your current home? Y es - How many times have you fallen in your home? N ever - How much would you need to change your living circumstances to feel safe? N ot at all - Do you feel that living somewhere else would be good for you? N o - How much help do you feel you need at home??None at all - How much does your family help with daily or routine chores? N ot at all Immunization Status addressed - Y es Depression Screening - N o Vision Screening - N o Hearing Screening - N o Fall Risk and Home Safety - N egative, no falls in the past year, no difficulty walking, or getting out of bed or chair M edication evaluation and reconcilliation performed Y es V ision screening recommended Y es L iterature offered to the patient Y es R eferrals p hysical therapy offered for gait balance and mobility evaluation, fall prevention home evauation offered, DEXA screening offered G et Up and Go Evaluation u nder 20 seconds Psychosocial Risks - N o overt psychosocial risks shown, observed, or mentioned Behavioral Risks - P atient seems very well adjusted and no behavorial issues noted Activities of daily living - N ot impaired Cognitive Screening - N o overt cognitive deficiency is apparent by direct observation D epression Screening: PHQ-9 L ittle interest or pleasure in doing things?Not at all F eeling down, depressed, or hopeless N ot at all T rouble falling or staying asleep, or sleeping too much N ot at all F eeling tired or having little energy N ot at all P oor appetite or overeating N ot at all F eeling bad about yourself or that you are a failure, or have let yourself or your family down N ot at all T rouble concentrating on things, such as reading the newspaper or watching television N ot at all M oving or speaking so slowly that other people could have noticed; or the opposite, being so fidgety or restless that you have been moving around a lot more than usual N ot at all T houghts that you would be better off or of hurting yourself in some way N ot at all T otal Score 0 * ROS: G eneral/Constitutional: Overall health G ood. C hange in appetite d enies.?Chills d enies. F ever d enies. N ight sweats d enies. S leep disturbance d enies. W eight gain a dmits, 8.5 p ounds. W eight loss d enies. N eurologic: Difficulty speaking d enies. D izziness d enies.?Gait abnormality d enies. H eadache d enies. L oss of strength d enies. M stefan loss , that is mild. S eizures d enies. T ingling/Numbness d enies . O phthalmologic: Blurred vision d enies. D ischarge d enies. D ry eye d enies. R ed eye d enies. E NT: Change in Voice D enies. C old Symptoms D enies.?Cough D enies. D izziness D enies. N shannan Congestion D enies. O talgia?Denies. p ostnasal drip D enies. B locked ear d enies. N osebleed d enies. S noring d enies. C ardiovascular: Diaphoresis D enies. P edal Edema D enies. P ND (Paroxsymal nocturnal dyspnea) D enies. C hest pain d enies. D ifficulty laying flat d enies. D yspnea on exertion d enies. H eart murmur d enies. O rthopnea?denies. R espiratory: Snoring d enies. A sthma d enies. C ough d enies. S hortness of breath with exertion d enies. S putum production d enies. W heezing d enies. G astrointestinal: Change in bowel habits d enies. C onstipation d enies. D ecreased appetite d enies. D iarrhea d enies. H eartburn d enies. N ausea d enies. V omiting d enies. M usculoskeletal: tingling/numbness D enies. m yalgias D enies. J oint Swelling D enies. e xtremeties n ormal. A rthritis , admits. B ack problems , admits. C arpal tunnel d enies. J oint stiffness d enies. M uscle aches d enies.? E ndocrine: Bowel Changes D enies. B reast Discharge D enies.?poor libido D enies. C old intolerance d enies. E xcessive sweating d enies.?Excessive thirst d enies. F requent urination d enies. T hyroid problems d enies. S kin: Bruising D enies. E czema d enies. H air changes d enies. R alexys d enies. S kin lesion(s) d enies. P sychiatric: Anxiety d enies. D epressed mood d enies. D ifficulty sleeping d enies. N ervous breakdown d enies. S ubstance abuse d enies.? U rology: abnormal menstrual bleeding d enies. b lood in urine?denies. b urning on urination d enies. d ifficulty urinating d enies. d ischarge d enies. d ysuria d enies. * Medical History: * Surgical History: c ataract removal hemorrhoidectomy inguinal hernia repair knee Arthoplasty * Hospitalization/Major Diagno stic Procedure: * Family History: F ather: . M other: . * Social History: T obacco Use: T obacco Use/Smoking A re you a f ormer smoker H ow long has it been since you last smoked??> 10 years Tobacco use other than smoking A re you an other tobacco user? s moked for 25 years, 1/2 ppd D rugs/Alcohol: D rugs H ave you used drugs other than those for medical reasons in the past 12 months? N o Alcohol Screen (Audit-C) D id you have a drink containing alcohol in the past year? Y es H ow often did you have a drink containing alcohol in the past year? 4 or more times a week (4 points) H ow many drinks did you have on a typical day when you were drinking in the past year? 1 or 2 drinks (0 point) H ow often did you have 6 or more drinks on one occasion in the past year? N ever (0 point) P oints 4 I nterpretation P ositive M iscellaneous: E xercise: Patient exercises. Living with: spouse. Marital status: . Occupation: Retired. * Medications: T akingAspir-Low 81 MG Tablet Delayed Release 1 tablet [...] Tablet 1 tablet Orally once a day Omeprazole 20 MG Capsule Delayed Release TAKE 1 CAPSULE DAILY amLODIPine Besylate 10 MG Tablet TAKE 1 TABLET ONCE DAILY Memantine HCl ER 7 MG Capsule Extended Release 24 Hour 4 capsules Orally Once a day Allopurinol 300 MG Tablet TAKE 1 TABLET ONCE DAILY Donepezil HCl 10 MG Tablet TAKE 1 TABLET AT BEDTIME Taking Aspir-Low 81 MG Tablet Delayed Release [...] 1 tablet Orally once a day Taking Omeprazole 20 MG Capsule Delayed Release TAKE 1 CAPSULE DAILY Taking amLODIPine Besylate 10 MG Tablet TAKE 1 TABLET ONCE DAILY Taking Memantine HCl ER 7 MG Capsule Extended Release 24 Hour 4 capsules Orally Once a day Taking Allopurinol 300 MG Tablet TAKE 1 TABLET ONCE DAILY Taking Donepezil HCl 10 MG Tablet TAKE 1 TABLET AT BEDTIME Not-TakingpredniSONE 20 MG Tablet 1 tablet Orally Once a day Kyle Aspirin 325 MG Tablet 1 tablet Orally Once a day Plavix 75 MG Tablet 1 tablet Orally Once a day Fish Oil 1000 MG Capsule 2 capsules Orally Once a day Sal NAC 6-90.314-2-600 MG Tablet 1 tablet Orally [...] Tablet 1 tablet Orally Once a day Not- Taking Torsemide 10 MG Tablet 1 tablet Orally Once a day Medication List reviewed and reconciled with the patient * Allergies: N .K.D.A.no[Allergies Verified] Objective: * Vitals: T emp: 97.3 F, Oxygen sat %: 98 %, HR: 99 /min, BP: 140/70 mm Hg, 130/82 mm Hg, Wt: 193.7 lbs, BMI: 32.23 Index, Ht: 5'5 . * P ast Orders: L ab:Hemoglobin [id number] (Order Date - 10/19/2024) (Collection Date & Time - 10/19/2024 11:26 AM) Value Reference Range Hemoglobin A1c/ Hemoglobin total 5.3 4.8-5.6 - % L ab:Albumin/Creatinine Ratio,[id number] (Order Date - 10/19/2024) (Collection Date & Time - 10/19/2024 11:26 AM) Value Reference Range Creatinine, Urine 316.0 Not Estab. - mg/dL Albumin, Urine 3961.9 Not Estab. - ug/mL Alb/Creat Ratio 1254 H 0-29 - mg/g creat L ab:Lipid Panel-[id number] (Order Date - 10/19/2024) (Collection Date & Time - 10/19/2024 11:26 AM) Value Reference Range Cholesterol, Total 203 H 100-199 - mg/dL Triglycerides 152 H 0-149 - mg/dL HDL Cholesterol 61 >39 - mg/dL VLDL Cholesterol Joshua 27 5-40 - mg/dL LDL Chol Calc (NIH) 115 H 0-99 - mg/dL L ab:Comp. Metabolic Panel [id number] (Order Date - 10/19/2024) (Collection Date & Time - 10/19/2024 11:26 AM) Value Reference Range Glucose 133 H 70-99 - mg/dL BUN 19 8-27 - mg/dL Creatinine 1.72 H 0.76-1.27 - mg/dL BUN/Creatinine Ratio 11 10-24 - Sodium 141 134-144 - mmol/L Potassium 3.9 3.5-5.2 - mmol/L Chloride 106 96-106 - mmol/L Carbon Dioxide, Total 20 20-29 - mmol/L Calcium 9.6 8.6-10.2 - mg/dL Protein, Total 6.8 6.0-8.5 - g/dL Albumin 4.1 3.8-4.8 - g/dL Globulin, Total 2.7 1.5-4.5 - g/dL Bilirubin, Total 0.4 0.0-1.2 - mg/dL Alkaline Phosphatase 138 H 44-121 - IU/L AST (SGOT) 18 0-40 - IU/L ALT (SGPT) 19 0-44 - IU/L eGFR 40 L >59 - mL/min/1.73 L ab:Hgb A1c with eAG [id number] (Order Date - 10/19/2023) (Collection Date & Time - 10/19/2023 11:22 AM) Value Reference Range Hemoglobin A1c 5.6 4.8-5.6 - % Estim. Avg Glu (eAG) 114 - mg/dL * Examination: G eneral Examination: GENERAL APPEARANCE: W ell developed, well nourished, in no acute distress. MUSCULOSKELETAL: d ecreased range of motion of the right hip joint in all planes. HEAD: N ormocephalic, atraumatic. EYES: P upils equal, round, reactive to light and accommodation, sclera non-icteric. EARS: a uditory canal clear tympanic membrane intact, clear light reflex present . ORAL CAVITY: N ormal. THROAT: C lear. OROPHARYNX N ormal. SINUSES N ormal. NECK/THYROID: N victorino supple, full range of motion, no cervical lymphadenopathy. SKIN: W arm and dry, no suspicious lesions. HEART: i rregularly irregular. LUNGS: c lear anteriorly and posteriorly clear to auscultation bilaterally good air movement no wheezes, rales, rhonchi . BREASTS: _ _. ABDOMEN: S oft, nontender, nondistended, bowel sounds present, normal. EXTREMITIES: N ormal. PERIPHERAL PULSES: N ormal. NEUROLOGIC: N onfocal, appropriate m otor strength normal upper and lower extremities, sensory exam intact. Psychiatry N ormal. FEMALE GENITOURINARY: _ _. MALE GENITOURINARY: _ _. PODIATRIC: N ormal. Scientific Photographer _ ____. Assessment: * Assessment: 1. E ncounter for general adult medical examination without abnormal findings - Z00.00 (Primary) 2 . E ssential (primary) hypertension - I10 3 . P ermanent atrial fibrillation - I48.21 4 . C hronic kidney disease, stage 3b - N18.32 5. H ypertensive chronic kidney disease with stage 1 through stage 4 chronic kidney disease, or unspecified chronic kidney disease - I12.9 6 . O bstructive sleep apnea (adult) (pediatric) - G47.33 7 . B enign prostatic hyperplasia with lower urinary tract symptoms - N40.1 8 . M ixed hyperlipidemia - E78.2 ? Landon is a 78-year-old gentle man with hypertension, hyperlipidemia, atrial fibrillation, peripheral neuropathy, progressive dementia, obstructive sleep apnea and upper GI bleed, lumbar stenosis and right hip joint pain he is here annual physical. plan is as follows Hypertension. Blood pressure well controlled on current regimen of amlodipine 10 mg daily. Hyperlipidemia. Lipid panel is not within recommended range. Considering his comorbidities we will start on Crestor 5 mg daily. Side effects explained and check lipid panel in 6 weeks. Atrial fibrillation. His rate control and he is not on anticoagulation because of history of GI bleed. Gout. Stable and continue on allopurinol 300 mg 1 tablet daily Chronic kidney disease stage IIIb. He does not appear to be in volume overload and he stable.? Avoid NSAIDs and he follows up with Dr. Kenney. BPH. Stable at this point. Acid reflux. Continue on omeprazole 20 mg 1 tablet daily and dietary restrictions discussed with the patient. Progressive dementia. Most likely vascular dementia considering his comorbidities. Increase Aricept to 20 mg daily and continue on memantine 7 mg and he takes 2 tablets. He is up-to-date on age specific screening. He is full code and his is his healthcare proxy. Plan: * Treatment: 2. C hronic kidney disease, stage 3b L AB: Basic Metabolic Panel [id number] (Ordered for 10/30/2024) 3. M ixed hyperlipidemia Start Rosuvastatin Calcium Tablet, 5 MG, 1 tablet, Orally, Once a day, 90 days, 90 Tablet, Refills 3. L AB: Lipid Panel-[id number] (Ordered for 10/30/2024) 4. O thers Refill Donepezil HCl Tablet, 10 MG, TAKE 2 TABLET AT BEDTIME, Orally, Once a day, 90 days, 180, Refills 3. * Procedures: P lastic Surgery Procedures: Botulinum Toxin: * Procedure Codes: G 0439 ANNUAL WELLNESS VST; PPS SUBSQT [id number] ACP DISCUSS/DSCN MKR [id number] BMI >=30 CALCUATE [id number] NEG SCR D PT NOT ELIG F/U/PLN [id number] ELDER MALTX SCR DOC NEG NO F/U [id number] Pt scrn tbco id as non [id number] MOST RECENT SYSTOLIC BP < 140MM [id number] MOST RECENT DIASTOLIC BP < 90MM [id number] NORMAL BP READING DOC F/U NOT [id number] PAIN ASSESS DOC NEG NO F/U PLAN [id number] DOC MEDS VERIFIED W/PT OR [id number] DOC MEDS VERIFIED W/PT OR ENN2582 BMI>=30OR<22 JOSHUA NO [id number] FALL RISK ASSESSMENT [id number] PT FALLS ASSESS-DOC'D LE1/YG3764H FXNL STATUS [id number] MENTAL STATUS [id number] PT SCRND UNHLTHY [place] [id number] ANNUAL DEPRESSION SCREENING 15 [id number] CURRENTLY A TOBACCO NON-USER * Preventive Medicine: YOUR PREVENTIVE WELLNESS PLAN: B W[place], Height, and Weight: The Recommended Frequency is: A nnually B lood Pressure: The Recommended Frequency is: E very 2 years, if BP </= 120/80 mm Hg, Annually, if BP >120-139/80-89 mm Hg V ision: The Recommended Frequency is: E very 3 years up to age 40, Every 2 years aged 40+ A bdominal Aortic Aneurysm: The Recommended Frequency is: O nce, between the age range of 65-75 and for those who have smoked 100+ cigarettes in lifetime C holesterol Testing: The Recommended Frequency is: R egularly beginning at age 20 with risk factors D iabetes Screening: The Recommended Frequency is: W ith a sustained BP >/= 135/80 mm Hg C olorectal Cancer Screening: The Recommended Frequency is: A nnually, Fecal Occult Blood Stool (FOBS), Every 5 years, Sigmoidoscopy with FOBS, Every 10 years, Colonoscopy P rostate Cancer Screening (Digital Rectal Exam [ALLEN]/Prostate Specific Antigen [PSA]): The Recommended Frequency is: A nnually, age 50 or older S exually Transmitted Diseases (STDs): The Recommended Frequency is: A s necessary for those with risk factors D epression Screening: The Recommended Frequency is: A s necessary for those with risk factors A lcohol Misuse Screening: The Recommended Frequency is: A s necessary for those with risk factors P neumococcal (Pneumonia) Vaccine: The Recommended Frequency is: 1 -2 doses up to age 64, 1 dose age 65+ I nfluenza (Flu) Vaccine: The Recommended Frequency is: A nnually O ther: _ ___. M ajor Risk Factors: Your Major Risk Factors Include: D iabetes, Fall risk, Hypertension, Obesity, Smoking use, Other R ecommendations For Improvement The recommendations are: D iet, Exercise, Tobacco cessation, Weight management, Other A dditional Resources Included: f ollow-up instructions, handouts, referrals. C OVID - ( (2021 (All Boosters) FLU - 2023 TDAP - Unknown SHINGRIX - 2023 RSV - NO BMD - No COLONOSCOPY- 2022 [facility] EYE EXAM - 2023 (name unknown) This plan was discussed, printed, and handed to patient. * Follow Up: 6 Months * Images: * Sign off status: Completed true * Provider: Artur VILLALPANDO MD Date: 10/30/2024 Generated for Velasquez rivera/Darline/eTransmitting on: 11/01/2024 12:51 PM EDT History and Physical Notes * HPI (History of Present Illness) Category Sub-Category Detail Notes Category Not es Depression Screening PHQ-9 Little inte rest or pleasure in doing things: Not at all Feeling down, depressed, or hopeless: No t at all Trouble falling or staying asleep, or sl eeping too much: Not at all Feeling tired or having little energy: N ot at all Poor appetite or overeating: Not at all Feeling bad about yourself o r that you are a failure, or have let yourself or your family down: Not at all Trouble concentrating on thi ngs, such as reading the newspaper or watching television: Not at all Moving or speaking so slowly that other people could have noticed; or the opposite, being so fidgety or restless that you have been moving around a lot more than usual: Not at all Thoughts that you would be b elisa off or of hurting yourself in some way: Not at all Total Score: 0 Medicare Annual Visit Type of Visit -: Subsequent Annual [facility] Language or Communication barrier addressed -: Y es Health Risk Assessment DEMOGRAPHICS: - - How old are you?: 78 or older - How would you best describe your ethni city?: Non- White - How would you describe your marital st atus?: - How would you describe your employment status?: Retired - How many children do you have?: three RISK ASSESSMENT: - - Do you currently use tobacco products? : No - Have you ever used tobacco products?: Yes, more than two years ago - What type of tobacco do you use or hav e you used?: __,Cigarettes - (If cigarette smoker) How long have yo u smoked?: 11-15 years - (If cigarette smoker) How many cigaret yessi do you smoke per day?: 11-20 - How many alcoholic beverag es (i.e. 1oz hard liquor, one glass of wine, one bottle of beer) do you drink daily, on average?: None - Have you ever felt the need to cut navdeep n on drinking?: No - Have people annoyed you with criticism of your drinking?: No - Do you or have you felt guilty for dri nking?: No - Have you ever felt the nee d to drink first thing in the morning to steady your nerves or to get rid of a hangover?: No - How often do you exercise?: Often - How vigorously can you exercise?: Mini bernarda - How often do you use seatbelts?: Alway s - In the past month, how often have you had sex?: __ - Do you have any significan t difficulties or dysfunction during sex?: No, never - How many partners do you have?: __ - How often do you experience pain with sex?: Never - How often do you use condoms during se x?: Always MENTAL HEALTH ASSESSMENT: - - In the past two weeks, how often have you felt depressed, down or hopeless?: Never - In the past month, how often have you felt anxious or stressed?: Never - What is your average level of daily st ress?: None - In the past two weeks, how often have you felt a lack of pleasure or interest in doing things?: Never - In the past two weeks, how often have you had difficulty falling asleep or episodes of sleeping too long?: Never - In the past two weeks, how often have you had a lack of energy?: Never - In the past two weeks, how often have you had feelings of being better off or thoughts of harming yourself?: Never - Have you ever attempted to harm yourse lf?: No GENERAL HEALTH/PAIN ASSESSMENT: - - In the past month, how often did you e xperience pain?: Never - In the past month, how muc h has pain affected your ability to work?: Not at all - In the past month, how muc h has pain affected your ability to walk?: Not at all - In the past month, how muc h has pain affected your relationship with other people?: Not at all - On a scale of 1-10, how bad would you rate your average daily pain?: No pain - How would you describe the ease with which you can prepare your own food?: Very easy - How would you describe the ease with which you can bathe or clean yourself?: Very easy - How would you describe the ease with w hich you can dress yourself?: Very easy - How hard is it to use the toilet by yo urself?: Not hard at all - How would you describe the ease with which you can do your own shopping?: Very easy - How would you describe the ease with which you can get around your house?: Very easy - How would you describe your ability to pay your bills?: Very good - How would you describe you r ability to plan your daily and monthly budgets?: Very good - How would you describe your ability to do routine housework?: Very good HOME SAFETY/ASSISTANCE: - - Do you feel like you are safe in your current home?: Yes - How many times have you fallen in your home?: Never - How much would you need to change your living circumstances to feel safe?: Not at all - Do you feel that living somewhere else would be good for you?: No - How much help do you feel you need at home?: None at all - How much does your family help with da thalia or routine chores?: Not at all Immunization Status addressed -: Yes Vision Screening -: No Depression Screening -: No Hearing Screening -: No Fall Risk and Home Safety -: Negative, n o falls in the past year, no difficulty walking, or getting out of bed or chair Medication evaluation and reconcilliatio n performed: Yes Vision screening recommended: Yes Literature offered to the patient: Yes Referrals: physical therapy offered for gait balance and mobility evaluation, fall prevention home evauation offered, DEXA screening offered Get Up and Go Evaluation: under 20 secon ds Psychosocial Risks -: No overt psychoso cial risks shown, observed, or mentioned Behavioral Risks -: Patient seems ramírez y well adjusted and no behavorial issues noted Activities of daily living -: Not impaired Cognitive Screening -: No overt cognitiv e deficiency is apparent by direct observation Patient Care Team - No Providers on Record Internal Medicine Landon is a 78-year-old gentleman with hypertension, hyperlipidemia, atrial fibrillation, peripheral neuropathy, progressive dementia, obstructive sleep apnea and upper GI bleed, lumbar stenosis and right hip joint pain he is here annual physical. He is accompanied by his . He also has progressive dementia which most likely secondary to vascular dementia. His vision and hearing is stable. He can function independently. No or GI issues. She is not anxious or depressed. He has multiple joint osteoarthritis and spinal stenosis and he follows up with Dr. Christie for spinal stenosis and have an intra-facet injection in the neck. He has pain in the right hip joint and is seeing Dr. Rodriguez in the past.no other acute issues. Examination Category Sub-Category Detail Notes Category Not es General Examination GENERAL APPEARANCE: Well dev eloped, well nourished, in no acute distress HEAD: Normocephalic, atrau matic EYES: Pupils equal, round, reactive to light and accommodation, sclera non-icteric EARS: auditory canal clear tympanic membrane intact, clear light reflex present THROAT: Clear NECK/THYROID: Neck supple, full ra nge of motion, no cervical lymphadenopathy HEART: irregularly irregula r LUNGS: clear anteriorly and posteriorly clear to auscultation bilaterally good air movement no wheezes, rales, rhonchi ABDOMEN: Soft, nontender, non distended, bowel sounds [...] Normal Psychiatry Normal OROPHARYNX Normal SINUSES Normal Scientific Photographer
--- OUTSIDE RECORDS SUMMARY | 2024-10-31 09:15 | XMS_ITS ---
Author Organization [facility] Address [address] [facility] [place] [address] Care Team Providers Care Chip Loft Worker Name Role Phone HAN VILLALPANDO Primary Care Provider REASON FOR VISIT Flu Shot Medications Medication SIG (Take, Route, Frequency, Duration) Notes Start Date End Date Status Eliquis 5 MG TAKE 1 TABLET TWICE A DAY Orally Twice a day; Duration: 90 days Not-Takin g Donepezil HCl 10 MG TAKE 2 TABLET AT BEDTIME Orally Once a day; Duration: 90 days Active Rosuvastatin Calcium 5 MG 1 tablet Orally Once a day; Duration: 90 days 10/30/2024 Active Torsemide 10 MG 1 tablet Orally Once a day; Duration: 90 days 11/12/2022 Not-Takin g Gemtesa 75 MG 1 tablet Orally Once a day; Duration: 30 days 10/21/2022 Not-Takin g Cerefolin NAC 6-90.314-2-600 MG 1 tablet Orally Once a day; Duration: 90 days 04/21/2023 Not-Takmarcus g Fish Oil 1000 MG 2 capsules Orally On ce a day Not-Taking Plavix 75 MG 1 tablet Orally Once a day Not-Taking Kyle Aspirin 325 MG 1 tablet Orally Onc e a day Not-Taking predniSONE 20 MG 1 tablet Orally Once a day; Duration: 7 days 02/27/2024 Not-Taking Allopurinol 300 MG TAKE 1 TABLET ONCE DAILY; Duration: 90 days Active Memantine HCl ER 7 MG 4 capsules Orally Once a day; Duration: 90 days Active amLODIPine Besylate 10 MG TAKE 1 TABLET ONCE DAILY; Duration: 90 days Active Omeprazole 20 MG TAKE 1 CAPSULE DAILY ; Duration: 90 days Active FeroSul 325 (65 Fe) MG 1 tablet Orally o nce a day; Duration: 90 days Active Align Prebiotic-Probiotic 1 daily Active Multivitamin Adults - as directed Orally 1 tablet daily 06/11/2017 Active Magnesium 250 MG 1 tablet with a meal Orally Once a day Active Tylenol 8 Hour Arthritis Pain 650 MG 2 tablets as needed Orally every 8 hrs Active Aspir-Low 81 MG 1 tablet Orally Once a day 10/25/2023 Active Immunizations Vaccine Route Administration Date Status Comme nts Fluzone QD IM Intramuscular 10/31/2024 Administered Encounters Encounter Location Date Provider Diagnosis [facility] [address] [address] 10/31/2024 HAN VILLALPANDO Encounter for immunization Z23 Assessments Encounter Date Diagnosis (ICD Code) Assessment Notes Treatment Notes Treatment Clinical Notes Section Notes 10/31/2024 Encounter for immunization (ICD-10 - Z23) Plan Of Treatment Next Appt Details Provider Name:HAN VILLALPANDO , 04/30/2025 09:00:00 AM, [address] [facility] [address], [place], [address], Progress Notes * Landon THORNTONDOB:1945 (78 yo M)Acc No.[id number]:10/31/2024 Progress Note Patient: Landon MORRIS Provider: Artur VILLALPANDO MD :1945 A ge:78 Y S ex:Male Date:10/31/2024 Address:[address] [place], [place] [id number] Subjective: * Chief Complaints: * 1 . Flu Shot. * Medical History: * Medications: T aking Aspir-Low 81 MG Tablet Delayed Release 1 tablet Orally Once a day , Taking Tylenol 8 Hour Arthritis Pain 650 MG Tablet Extended Release 2 tablets as needed Orally every 8 hrs , Taking Magnesium 250 MG Tablet 1 tablet with a meal Orally Once a day , Taking Multivitamin Adults - Tablet as directed Orally 1 tablet daily , Taking Align Prebiotic-Probiotic , Notes to Pharmacist: 1 daily, Taking FeroSul 325 (65 Fe) MG Tablet 1 tablet Orally once a day , Taking Omeprazole 20 MG Capsule Delayed Release TAKE 1 CAPSULE DAILY , Taking amLODIPine Besylate 10 MG Tablet TAKE 1 TABLET ONCE DAILY , Taking Memantine HCl ER 7 MG Capsule Extended Release 24 Hour 4 capsules Orally Once a day , Taking Allopurinol 300 MG Tablet TAKE 1 TABLET ONCE DAILY , Taking Rosuvastatin Calcium 5 MG Tablet 1 tablet Orally Once a day , Taking Donepezil HCl 10 MG Tablet TAKE 2 TABLET AT BEDTIME Orally Once a day , Not- Taking predniSONE 20 MG Tablet 1 tablet Orally Once a day , Not-Taking Kyle Aspirin 325 MG Tablet 1 tablet Orally Once a day , Not-Taking Plavix 75 MG Tablet 1 tablet Orally Once a day , Not-Taking Fish Oil 1000 MG Capsule 2 capsules Orally Once a day , Not-Taking Cerefolin NAC 6-90.314-2-600 MG Tablet 1 tablet Orally Once a day , Not-Taking Eliquis 5 MG Tablet TAKE 1 TABLET TWICE A DAY Orally Twice a day , Not-Taking Gemtesa 75 MG Tablet 1 tablet Orally Once a day , Not-Taking Torsemide 10 MG Tablet 1 tablet Orally Once a day Objective: * Vitals: Assessment: * Assessment: 1. E ncounter for immunization - Z23 Plan: * Treatment: * Immunizations: Fluzone QD : 0.5 mL (Route: Intramuscular) given by Cory Xavier on Left Deltoid (Encounter for immunization) * Procedure Codes: 9 0686 FLU VAC NO PRSV 4 ROSAURA 3 YRS * Images: * Electronic signature of DEYANIRA VILLALPANDO MD on 11/01/2024 at 12:51 PM EDT Sign off status: Pending * Provider: Artur VILLALPANDO MD Date: 10/31/2024 Generated for Velasquez rivera/Darline/Aashish on: 11/01/2024 12:51 PM EDT
--- NOTE | 2024-11-01 10:36 | HO.NEPHOV_ITS ---
Vital Signs 11/01/24 10:41 Height 5 ft 7 in Weight 198 lb BMI 31.0 BP 122/70 Blood Pressure Location Lt brachial Position Sitting Pulse 80 Pulse Source Pulse Oximeter Pulse Oximetry (%) 96 Oxygen Delivery Method Room Air Intake Visit Reasons: 6mon follow-up w/labs-Conf W/ Exec. Creative Director Required: No Accompanied by: Spouse Allergies No Known Allergies Allergy (Verified 11/01/24 10:38) HPI Comments Details: Landon in follow-up of his chronic kidney disease and hypertension. He continues to have cold feet . He has seen vascular surgery. 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 He had steroid injection for spinal sten osis . His blood pressure has been at goal. He avoids nonsteroidal anti- inflammatories. He has been having memory issues and is on Aricept. He denies nausea, vomiting, diarrhea, shortness of breath, chest pain, dysuria, hematuria or orthostatic symptoms. He feels well. [facility] Medical History Presence of Watchman left atrial appendage closure device Hypertension CKD (chronic kidney disease) stage 3, GFR 30-59 ml/min Surgical History History of knee replacement Family History Father Hypertension Mother Hypertension Heart attack Father Stroke Hypertension Sister Hypertension Stroke Social History Alcohol intake: current Comment: Soacial Patient Tobacco Use Status: Former Tobacco user Review of Systems Const All systems reviewed & are unremarkable except as noted in HPI and below Physical Exam Const General: comfortable and no acute distress Orientation/consciousness: patient oriented x3 HEENT Head: Yes normocephalic Mouth: Normal oral and palatal mucosa present Eyes EOM: EOMs intact bilaterally Neck Neck: Yes supple Resp Auscultation: clear to auscultation bilaterally Cardio Jugular venous distension: no JVD Rate: regular rate GI Palpation (GI): Soft to palpation Auscultation: normal bowel sounds General: Yes no CVA tenderness Back/Spine/Pelvis Back: no CVA tenderness Skin General skin exam: no rashes or lesions noted Neuro General: patient oriented x3 and moves all extremities Extrem General: Yes no pedal edema Assessment & Plan Assessment & Plan (1) Hypertension: Code(s): I10 - Essential (primary) hypertension Category: Medical Qualifiers: Hypertension type: primary hypertension Qualified Code(s): I10 - Essential (primary) hypertension (2) CKD (chronic kidney disease) stage 3, GFR 30-59 ml/min: Code(s): N18.30 - Chronic kidney disease, stage 3 unspecified Category: Medical Qualifiers: Chronic kidney disease stage 3 subtype: stage 3a (GFR 45-59) Qualified Code(s): N18.31 - Chronic kidney disease, stage 3a Plan Landon has CKD from vascular disease. His blood pressure is currently at goal. I started him on Jardiance 10 mg daily. His renal function remain close to baseline. He has proteinuria. He avoids nonsteroidal anti-inflammatories and maintain good hydration. He should be on a low-sodium diet. He can continue current dose of his medications. I did not make any medication changes today. Follow-up lab work ordered. Answered all questions. Orders: Orders Blood Urea Nitrogen 3 Months I10 - Essential (primary) hypertension, N18.31 - Chronic kidney disease, stage 3a Electrolytes 3 Months I10 - Essential (primary) hypertension, N18.31 - Chronic kidney disease, stage 3a Creatinine 3 Months I10 - Essential (primary) hypertension, N18.31 - Chronic kidney disease, stage 3a Medications: New empagliflozin (Jardiance) 10 mg PO DAILY 30 tabs 6RF Coding Level of Care Code Est Pt Level 4 (55558) Diagnoses Primary hypertension I10 Hypertension type: primary hypertension Stage 3a chronic kidney disease N18.31 Chronic kidney disease stage 3 subtype: stage 3a (GFR 45-59)
[2024-11-01 10:41] VITALS: BP 122/70; PULSE 80; O2SAT 96; BMI 31.0
--- OUTSIDE RECORDS SUMMARY | 2024-11-01 12:51 | XMS_ITS | Clinical Summary ---
Author Organization [address] [place] [address] Address [address] [place] [address] Phone Care Team Providers Care Sap Crm Developer Name Role Phone El Ramesh MD Primary Care Provider [phone] Surgical History Surgery Date Site/Laterality Comments JOINT REPLACEMENT PROCEDURE:JOINT REPLACEMENT HERNIA REPAIR PROCEDURE:HERNIA REPAIR HEMORRHOID SURGERY PROCEDURE:HEMORRHOID SURGERY Medical History Medical History Date Comments Hypertension DX:Hypertension A-fib (CMS/HCC V24, CMS/HCC V28) DX:A-fib ([facility]) Gout DX:Gout Arthritis DX:Arthritis Social History Tobacco [...] Vaccines (1 of 2) 12/03/1993 RSV Immunization Adult Patients (1 - 1-dose 75+ series) 12/03/2018 Cholesterol Screening (Lipid Panel) 01/24/2022 Falls Risk Assessment 01/24/2022 Social Influencers of Health Screening 01/24/2022 Medicare Annual Wellness Visit 10/22/2023 10/21/2022 Pneumococcal Vaccine: 50+ Years (2 of 2 - PCV) 12/08/2023 12/07/2022 Depression Screening 02/22/2024 COVID-19 Vaccine (1 - season) 2024 Influenza Vaccine (#1) 2024 , 11/12/2021, 11/22/2020, Additional history exists HIB Vaccines Aged Out No longer eligi [...] age to complete this topic Meningococcal B Vaccine Aged Out No l onger eligible based on patient's age to complete this topic RSV Immunization Patients Under 20 months Aged Out No longer eligible based on patient's age to complete this topic Varicella Vaccines Aged Out No longer eligible based on patient's age to complete this topic Insurance MEDICARE [facility] Advance Directives Documents on File Type Date Recorded 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
--- OUTSIDE RECORDS SUMMARY | 2024-11-01 12:51 | XMS_ITS ---
Author Name RUSTP Organization Unknown Care Team Organization Name Specialty Phone Email Start Date End Da te [facility] NULL Primary Care 10/30/2024
--- OUTSIDE RECORDS SUMMARY | 2024-11-01 12:51 | XMS_ITS | Clinical Summary ---
Author Organization [facility] Address [address] [place] [address] Care Team Providers Care Gin Feeder Name Role Phone El Ramesh MD Primary Care Provider [phone] Allergies No known active allergies Medications Medication [...] 1-dose 75+ series) 12/03/2018 Influenza Vaccine (#1) 2024 10/26/2019 Hepatitis B Vaccines Aged Out No long er eligible based on patient's age to complete this topic RSV Ped < 20 months Aged Out No longe r eligible based on patient's age to complete this topic Care Teams Gin Feeder Relationship Specialty Start Date End Date El Ramesh MD PCP - General Internal Medicine 03/02/17
--- OUTSIDE RECORDS SUMMARY | 2024-11-01 12:52 | XMS_ITS | Patient Health Record ---
Author Organization [facility] Address [address] [facility] [place] [address] Care Team Providers Care Care Connector Name Role Phone HAN VILLALPANDO Primary Care Provider AlaYuri mccrary Unavailable [phone] Allergies No Known Allergies Results Component Value Reference Range Notes Basic Metabolic Panel ([id number] Reviewed date:11/01/2024 07:25:57 AM Interpretation: Performing Lab:[facility], [address] [facility], Phone - [phone], Director - MDJodry Notes/Report: Glucose 90 70-99 mg/dL BUN 25 8-27 mg/dL Creatinine 1.68 0.76-1.27 mg/dL eGFR 41 >59 mL/min/1.73 BUN/Creatinine Ratio 15 10-24 Sodium 141 134-144 mmol/L Potassium 4.2 3.5-5.2 mmol/L Chloride 102 96-106 mmol/L Carbon Dioxide, Total 22 20-29 mmol/L Calcium 9.7 8.6-10.2 mg/dL Lipid Panel-[id number] Reviewed date:11/01/2024 07:28:20 AM Interpretation: Performing Lab:[facility], [address] [facility], [place], Phone - [phone], Director - MDTabithay Notes/Report: Cholesterol, Total 199 100-199 mg/dL Triglycerides 174 0-149 mg/dL HDL Cholesterol 58 >39 mg/dL VLDL Cholesterol Herminio 30 5-40 mg/dL LDL Chol Calc (RUST) 111 0-99 mg/dL Comp. Metabolic Panel (14)-3 Reviewed date:10/24/2024 07:51:33 AM Interpretation: Performing Lab:[facility], [address], [place], Phone - [phone], Director - Alex Notes/Report: Glucose 133 70-99 mg/dL BUN 19 8-27 mg/dL Creatinine 1.72 0.76-1.27 mg/dL eGFR 40 >59 mL/min/1.73 BUN/Creatinine Ratio 11 10-24 Sodium 141 134-144 mmol/L Potassium 3.9 3.5-5.2 mmol/L Chloride 106 96-106 mmol/L Carbon Dioxide, Total 20 20-29 mmol/L Calcium 9.6 8.6-10.2 mg/dL Protein, Total 6.8 6.0-8.5 g/dL Albumin 4.1 3.8-4.8 g/dL Globulin, Total 2.7 1.5-4.5 g/dL Bilirubin, Total 0.4 0.0-1.2 mg/dL Alkaline Phosphatase 138 44-121 IU/L Effective November 05, 2024 Alkaline Phosphatase reference interval will be changing to: Age Male Female 0 - 5 days 47 - 127 47 - 127 6 - 10 days 29 - 242 29 - 242 11 - 20 days 109 - 357 109 - 357 21 - 30 days 94 - 494 94 - 494 1 - 2 months 149 - 539 149 - 539 3 - 6 months 131 - 452 131 - 452 7 - 11 months 117 - 401 117 - 401 12 months - 6 years 158 - 369 158 - 369 7 - 12 years 150 - 409 150 - 409 13 years 156 - 435 78 - 227 14 years 114 - 375 64 - 161 15 years 88 - 279 56 - 134 16 years 74 - 207 51 - 121 17 years 63 - 161 47 - 113 18 - 20 years 51 - 125 42 - 106 21 - 50 years 47 - 123 41 - 116 51 - 80 years 49 - 135 51 - 125 >80 years 48 - 129 48 - 129 AST (SGOT) 18 0-40 IU/L ALT (SGPT) 19 0-44 IU/L Lipid Panel-[id number] Reviewed date:10/24/2024 07:51:29 AM Interpretation: Performing Lab:[facility], [address], [place], Phone - [phone], Director - MDJodry Notes/Report: Cholesterol, Total 203 100-199 mg/dL Triglycerides 152 0-149 mg/dL HDL Cholesterol 61 >39 mg/dL VLDL Cholesterol Herminio 27 5-40 mg/dL LDL Chol Calc (RUST) 115 0-99 mg/dL Albumin/Creatinine Ratio,Karson ne-[id number] Reviewed date:10/24/2024 07:51:26 AM Interpretation: Performing Lab:[facility] [place], [address] [place] [address], [place], Phone - [phone], Director - Alex Notes/Report: Creatinine, Urine 316.0 Not Estab. mg/dL Albumin, Urine 3961.9 Not Estab. ug/mL Results confirmed on dilution. Alb/Creat Ratio 1254 0-29 mg/g creat Normal: 0 - 29 Moderately increased: 30 - 300 Severely increased: >300 Hemoglobin D0s-[id number] Reviewed date:10/24/2024 07:51:14 AM Interpretation: Performing Lab:[facility] [place], [address] [place] [address], [place], Phone - [phone], Director - Alex Notes/Report: Hemoglobin A1c 5.3 4.8-5.6 % . Prediabetes: 5.7 - 6.4 Diabetes: >6.4 Glycemic control for adults with diabetes: <7.0 Reason For Referral Reason right hip and lumbar pain with need steroid injection Diagnosis 1 Pain in right hip (M 25.551) Diagnosis 2 Low back pain, unspe cified (M54.50) Referral Organization [facility] Referring Provider Last Name Yusef Referring Provider Speciality Internal edicine Referred Provider Specialty Orthopedic S urgery General Notes [facility] Please call patient to schedule.Kirti Christy 04/13/2024 01:33:21 PM > Referral Priority Routine Reason MRI showed labrum an d muscle tear; Please evaluate and treat Diagnosis 1 Gait instability (R2 6.81) Diagnosis 2 Pain in right hip (M 25.551) Referral Organization [facility] Referring Provider [facility] Referring Provider Last Name Yusef Referring Provider Speciality Internal edicine Referred Provider Specialty Orthopedic S urgery General Notes Referral faxed to [facility]. Please contact the patient to schedule.Flaco Kayla 03/14/2024 09:04:54 AM > Referral Priority Urgent Reason Please evaluate and treat for severe spinal stenosis Diagnosis 1 Spinal stenosis, sit e unspecified (M48.00) Referral Organization [facility] Referring Provider First Name Yuri Referring Provider Last Name Lela Referring Provider Speciality Internal M edicine Referred Provider Specialty Neurological Surgery General Notes Referral faxed to [facility]. Please contact the patient to schedule., Randee Sam 03/14/2024 09:15:08 AM > Referral Priority Urgent Reason Evaluate and treat Diagnosis 1 Complaints of memory disturbance (R41.3) Referral Organization [facility] Referring Provider First Name HAN Referring Provider Last Name IRASEMA Referring Provider Speciality Internal M edicine Referred Provider Specialty Neurology General Notes Referral faxed to [facility] per pt's request F: [phone], BaldomeroDaniela candelaria 08/06/2024 02:49:09 PM > Referral Priority Routine Medications Medication SIG (Take, Route, Frequency, Duration) Notes Start Date End Date Status Align Prebiotic-Probiotic 1 daily Active Eliquis 5 MG TAKE 1 TABLET TWICE A DAY Orally Twice a day; Duration: 90 days Not-Takin g Multivitamin Adults - as directed Orally 1 tablet daily 06/11/2017 Active Cerefolin NAC 6-90.314-2-600 MG 1 tablet Orally Once a day; Duration: 90 days 04/21/2023 Not-Takin g Magnesium 250 MG 1 tablet with a meal Orally Once a day Active Fish Oil 1000 MG 2 capsules Orally On ce a day Not-Taking Tylenol 8 Hour Arthritis Pain 650 MG 2 tablets as needed Orally every 8 hrs Active Plavix 75 MG 1 tablet Orally Once a day Not-Taking Kyle Aspirin 325 MG 1 tablet Orally Onc e a day Not-Taking Aspir-Low 81 MG 1 tablet Orally Once a day 10/25/2023 Active predniSONE 20 MG 1 tablet Orally Once a day; Duration: 7 days 02/27/2024 Not-Taking Allopurinol 300 MG TAKE 1 TABLET ONCE DAILY; Duration: 90 days Active Memantine HCl ER 7 MG 4 capsules Orally Once a day; Duration: 90 days Active Donepezil HCl 10 MG TAKE 2 TABLET AT BEDTIME Orally Once a day; Duration: 90 days Active amLODIPine Besylate 10 MG TAKE 1 TABLET ONCE DAILY; Duration: 90 days Active Rosuvastatin Calcium 5 MG 1 tablet Orally Once a day; Duration: 90 days 10/30/2024 Active Omeprazole 20 MG TAKE 1 CAPSULE DAILY ; Duration: 90 days Active Torsemide 10 MG 1 tablet Orally Once a day; Duration: 90 days 11/12/2022 Not-Haritha g FeroSul 325 (65 Fe) MG 1 tablet Orally o nce a day; Duration: 90 days Active Gemtesa 75 MG 1 tablet Orally Once a day; Duration: 30 days 10/21/2022 Not-Takin g Immunizations Vaccine Route Administration Date Status Comme nts COVID 19 Pfizer Unknown 03/21/2020 Administered COVID 19 Pfizer Unknown 04/11/2020 Administered COVID 19 Pfizer Unknown 11/22/2020 Administered COVID-19 Pfizer Unknown 01/06/2022 Administered Flu Unknown 11/12/2021 Administered Fluzone QD IM Intramuscular 10/31/2024 Administered Influenza, high dose seasonal IM Intramuscular [...] Problem Status W/U Status Risk Notes Problem Mixed hyperlipidemia (051329731) Mixed hyperlipidemia (E78.2) Active confirmed Problem Sleep apnea (91601597) Sleep apnea, unspecified (G47.30) Active confirmed Problem Obstructive sleep apnea syndrome (disorder) (50383263) Obstructive sleep apnea (adult) (pediatric) (G47.33) Active confirmed Problem Polyneuropathy (30839812) Polyneuropathy, unspecified (G62.9) Active confirmed Problem Essential hypertension (47294626) Essential (primary) hypertension (I10) Active confirmed Problem Chronic kidney disease due to hypertension (925958054776371) Hypertensive chronic kidney disease with stage 1 through stage 4 chronic kidney disease, or unspecified chronic kidney disease (I12.9) Active confirmed Problem Intermittent claudication of bilateral lower limbs co-occurrent and due to atherosclerosis (67976458728094903) Atherosclerosis of [place] arteries of extremities with intermittent claudication, 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) Active confirmed Problem Gastro-esophageal reflux disease without esophagitis (956734535) Gastro-esophageal reflux disease without esophagitis (K21.9) Active confirmed Problem Gastrointestinal hemorrhage (49263354) Gastrointestinal hemorrhage, unspecified (K92.2) Active confirmed Problem Gout (27686969) Gout, unspecifie d (M10.9) Active confirmed Problem Spinal stenosis (38314071) Spinal stenosis, site unspecified (M48.00) Active confirmed Problem Chronic kidney disease stage 2 (338738812) Chronic kidney disease, stage 2 (mild) (N18.2) Active confirmed Problem 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) Active confirmed Problem Abnormal gait (04754951) Other abnormalities of gait and mobility (R26.89) Active confirmed Problem Impaired fasting glucose (403925960) Impaired fasting glucose (R73.01) Active confirmed Problem Proteinuria (77337532) Proteinuria, unspecified (R80.9) Active confirmed Problem Adult health examination (900533901) Encounter for general adult medical examination without abnormal findings (Z00.00) Active confirmed Problem Lower urinary tract symptoms due to benign prostatic hypertrophy (24681978784268) Benign prostatic hyperplasia with lower urinary tract symptoms (N40.1) Active confirmed Problem Amnesia (59478642) Complaints of memory disturbance (R41.3) Active confirmed Problem Permanent atrial fibrillation (860594373) Permanent atrial fibrillation (I48.21) Active confirmed Problem Chronic kidney disease stage 3B (disorder) (127137238) Chronic kidney disease, stage 3b (N18.32) Active confirmed Problem Lumbar radiculopathy (152229749) Lumbar radiculopathy (M54.16) Active confirmed Problem Abnormal gait (31904071) Gait instability (R26.81) Active confirmed Vital Signs Heart Rate 99 /min 10/30/2024 Temperature 97.3 degrees Fahrenheit 10/30/2024 Blood pressure diastolic 82 mm Hg 10/30/2024 Oximetry 98 % 10/30/2024 Height 5'5 in 10/30/2024 Blood pressure systolic 130 mm Hg 10/30/2024 Weight 193.7 lbs 10/30/2024 BMI 32.23 kg/m2 10/30/2024 Encounters Encounter Location Date Provider Diagnosis [facility] [address] [facility] [address] [place] [address] 10/31/2024 SHORT GU Encounter for immunization Z23 [address] [place] [address] 02/09/2024 A[place] Alam Lumbar radiculopathy M54.[address] [place] [address] 04/23/2024 HAN RANGEL Essential (primary) hypertension I10 ; Permanent atrial fibrillation I48.21 ; Complaints of memory disturbance R41.3 ; Impaired fasting glucose R73.01 ; Chronic kidney disease, stage 2 (mild) N18.2 ; Spinal stenosis, site unspecified M48.00 and Gout, unspecified M10.[address] [place] [address] 10/30/2024 HAN RANGEL Encounter for genera l adult medical examination [...] tract symptoms N40.1 and Mixed hyperlipidemia E78.2 [facility] [address] [facility] [address] [place] [address] 01/04/[address] [place] [address] 01/10/[address] [place] [address] 02/27/2024 HAN VILLALPANDO Lumbar radiculopathy M54.[address] [place] [address] 02/27/[address] [place] [address] 02/27/2024 HAN VILLALPANDO Lumbar radiculopathy M54.[address] [place] [address] 02/27/[address] [place] [address] 03/19/[address] [place] [address] 04/13/[address] [place] [address] 03/14/2024 Yuri Vogel Assessments Encounter Date Diagnosis (ICD Code) Assessment [...] medications as before without any new changes 04/23/2024 Essential (primary) hypertension (ICD-10 - I10) [...] dose in future. Screening blood work ordered 10/30/2024 Essential (primary) hypertension (ICD-10 - I10) [...] and his is his healthcare proxy. 10/30/2024 Encounter for general adult medical examination [...] code and his is his healthcare proxy. 10/31/2024 Encounter for immunization (ICD-10 - Z23) 02/27/2024 Lumbar radiculopathy (ICD-10 - M54.16) 02/27/2024 Lumbar radiculopathy (ICD-10 - M54.16) 10/30/2024 Permanent atrial fibrillation (ICD-10 - I48.21) [...] code and his is his healthcare proxy. 04/23/2024 Complaints of memory disturbance (ICD-10 - [...] dose in future. Screening blood work ordered 10/30/2024 Chronic kidney disease, stage 3b (ICD-10 [...] code and his is his healthcare proxy. 04/23/2024 Chronic kidney disease, stage 2 (mild) [...] dose in future. Screening blood work ordered 10/30/2024 Hypertensive chronic kidney disease with stage [...] code and his is his healthcare proxy. 04/23/2024 Spinal stenosis, site unspecified (ICD-10 - [...] dose in future. Screening blood work ordered 10/30/2024 Benign prostatic hyperplasia with lower urinary [...] code and his is his healthcare proxy. 04/23/2024 Gout, unspecified (ICD-10 - M10.9) Landon [...] dose in future. Screening blood work ordered 10/30/2024 Mixed hyperlipidemia (ICD-10 - E78.2) Landon [...] is his healthcare proxy. Plan Of Treatment Pending Test Test Name Order Date MRI : Hip, right 02/09/2024 Electrocardiogram (EKG) 06/21/2017 Lipid Panel 06/21/2017 MRI : Lumbar without contrast 02/09/2024 MICROALBUMIN,URINE 06/21/2017 CBC (COMPLETE BLOOD COUNT) 11/02/2019 COMPREHENSIVE METABOLIC PANEL 01/07/2022 HEMOGLOBIN A1C 08/14/2021 MICROALBUMIN, URINE 01/07/2022 COMPREHENSIVE METABOLIC PANEL 06/21/2017 Next Appt Details Provider Name:HAN VILLALPANDO , 04/30/2025 09:00:00 AM, [address] [place] [address], [phone], Insurance Providers Payer Name Payer Address Payer Phone Subscriber Number Group Number Insured Name Patient Relationship to Insured Coverage Start Date Coverage End Date Medicare [address] [place] [address] [id number] Landon Thornton Self - patient is the insured [employer] [facility] [address] [place] [address] [id number] Landon Thornton Self - patient is the insured Medical [...]
--- OUTSIDE RECORDS SUMMARY | 2024-11-01 12:52 | XMS_ITS | Clinical Summary ---
Author Organization [facility] Address [address] [facility] [address] [place] [address] Phone Care Team Providers Care Activity Coordinator Name Role Phone El Ramesh MD Primary Care Provider [phone] Allergies No known active allergies Medications allopurinol [...] 08/01/2020 Pain in right hip joint 10/26/201607/22 Immunizations Immunization Administration Dates Next Due Hep A, Unspecified [...] Due Date Last Done Comments Pneumococcal Vaccine: 50+ Ye ars (1 of 2 - PCV) 12/03/1964 Influenza Vaccine (#1) 2024 10/26/2019 Hepatitis B Vaccine Aged Out No longe r eligible based on patient's age to complete this topic Insurance Medicare [employer] Medicare Care Teams Activity Coordinator Relationship Specialty Start Date End Date El Ramesh MD [address] [place] [address] PCP - General 03/03/20
== END 2024-11-01 11:04 | disposition home or self-care (01) ==
LOC: HO.HKAS 10:19
PROVIDERS: PCP Hospitalist; Visit Provider Internal Medicine Nephrology
DX: I10 Essential (primary) hypertension (principal); N18.31 Chronic kidney disease, stage 3a
CPT/HCPCS: 99214

== ENCOUNTER → 2024-11-01 10:19 | Outpatient (BNVA) | payer MEDICARE, OTHER, SELFPAY | PROVIDERS: PCP Hospitalist; Visit Provider Internal Medicine Nephrology | DX: I10 Essential (primary) hypertension (principal); N18.31 Chronic kidney disease, stage 3a | CPT/HCPCS: 99212 ==